=== PATIENT | male | born 1950 | race African-American/Black ===

== ENCOUNTER 2017-04-25 13:02 | Emergency (ER) | payer MEDICARE, BC ==
--- NOTE | 2017-04-25 13:47 | ER Document Report ---
ED Medical Screen (RME) - General Chief Complaint: Dizziness Stated Complaint: LEG PAIN Time Seen by Provider: 04/25/17 13:46 Mode of Arrival: Wheelchair Information source: Patient, Relative Notes: This is a 67-year-old man with a history of PTSD, bipolar affective disorder, chronic back pain, hypertension and diabetes. Patient presents to the emergency room because of recent unsteady gait, generalized weakness, falls 3. Patient denies any focal motor weakness. The symptoms have been greater than 24 hours. There is some reports of alcohol use. He does smoke 2 packs a day. Primary CARE physician: Jr Jose Psychiatrist Dr. Richards TRAVEL OUTSIDE OF THE [place] IN LAST 30 DAYS: No - Related Data Allergies/Adverse Reactions: No Known Allergies Allergy (Verified 04/25/17 13:08) Past Medical History - Past Medical History Cardiac Medical History: Reports: Hx Hypertension Pulmonary Medical History: Denies: Hx Tuberculosis Endocrine Medical History: Reports: Hx Diabetes Mellitus Type 2 Renal/ Medical History: Denies: Hx Peritoneal Dialysis Psychiatric Medical History: Reports: Hx Bipolar Disorder, Hx Depression, Hx Post Traumatic Stress Disorder Denies: Hx Schizophrenia Past Surgical History: Reports: Hx Genitourinary Surgery - Bladder surgery. Denies: Hx Pacemaker - Immunizations Hx Diphtheria, Pertussis, Tetanus Vaccination: No Physical Exam - Vital signs Vitals: Temp Pulse Resp BP Pulse Ox 98.6 F 101 H 20 134/67 H 100 04/25/17 13:07 04/25/17 13:07 04/25/17 13:07 04/25/17 13:07 04/25/17 13:07 Course - Vital Signs Vital signs: Temp Pulse Resp BP Pulse Ox 98.6 F 101 H 20 134/67 H 100 04/25/17 13:07 04/25/17 13:07 04/25/17 13:07 04/25/17 13:07 04/25/17 13:07
[2017-04-25 14:44] LABS: ABSOLUTE EOSINOPHILS # (AUTO) 0.1 10^3/uL (0.0-0.6); ABSOLUTE LYMPHOCYTES (AUTO) 1.9 10^3/uL (0.5-4.7); ABSOLUTE MONOCYTES (AUTO) 0.8 10^3/uL (0.1-1.4); ABSOLUTE NEUT (AUTO) 6.4 10^3/uL (1.7-8.2); BASOPHILS % (AUTO) 0.4 % (0-2); HEMATOCRIT 37.8 % (37.9-51.0); HEMOGLOBIN 12.7 g/dL (13.5-17.0); HGB HCT DIFFERENCE 0.3; LYMPHOCYTES % (AUTO) 20.8 % (13-45); MEAN CORPUSCULAR HEMOGLOBIN 31.1 pg (27.0-33.4); MEAN CORPUSCULAR HGB CONC 33.6 g/dL (32.0-36.0); MEAN CORPUSCULAR VOLUME 92 fl (80-97); MONOCYTES % (AUTO) 8.7 % (3-13); RED CELL DISTRIBUTION WIDTH 15.5 % (11.5-14.0); SEGMENTED NEUTROPHILS % (AUTO) 69.1 % (42-78); WHITE BLOOD COUNT 9.3 10^3/uL (4.0-10.5)
[2017-04-25 14:48] LABS: APPEARANCE,URINE CLEAR; BILIRUBIN,URINE NEGATIVE (NEGATIVE); GLUCOSE, URINE NEGATIVE (NEGATIVE); KETONES,URINE NEGATIVE (NEGATIVE); LEUKOCYTE ESTERASE,URINE NEGATIVE (NEGATIVE); NITRITE,URINE NEGATIVE (NEGATIVE); PROTEIN,URINE NEGATIVE (NEGATIVE); URINE SPECIFIC GRAVITY 1.004; UROBILINOGEN,URINE NEGATIVE mg/dL (<2.0)
--- NOTE | 2017-04-25 14:53 | ER Document Report ---
ED Dizziness/Weakness - General Chief Complaint: Dizziness Stated Complaint: LEG PAIN Time Seen by Provider: 04/25/17 13:46 Mode of Arrival: Wheelchair Notes: The patient is a 67-year-old male, past medical history PTSD, depression, presents with 24 hours of ataxia and feeling off balance. His family also said that he is having intermittent slurred speech throughout the day. Patient had a fall last night and hit the back of his head and right fernández. He denies headache, blood thinner use, fernández pain, numbness, tingling, back pain, chest pain, shortness of breath, blurry vision, focal weakness, numbness, tingling or fevers. TRAVEL OUTSIDE OF THE [place] IN LAST 30 DAYS: No - Related Data Allergies/Adverse Reactions: No Known Allergies Allergy (Verified 04/25/17 13:08) Past Medical History - General Information source: Patient, Relative - Social History Smoking Status: Current Every Day Smoker Chew tobacco use (# tins/day): No Frequency of alcohol use: None Drug Abuse: None Family History: Reviewed & Not Pertinent - Past Medical History Cardiac Medical History: Reports: Hx Hypertension Pulmonary Medical History: Denies: Hx Tuberculosis Endocrine Medical History: Reports: Hx Diabetes Mellitus Type 2 Renal/ Medical History: Denies: Hx Peritoneal Dialysis Psychiatric Medical History: Reports: Hx Bipolar Disorder, Hx Depression, Hx Post Traumatic Stress Disorder Denies: Hx Schizophrenia Past Surgical History: Reports: Hx Genitourinary Surgery - Bladder surgery. Denies: Hx Pacemaker - Immunizations Hx Diphtheria, Pertussis, Tetanus Vaccination: No Review of Systems - Review of Systems Notes: REVIEW OF SYSTEMS: CONSTITUTIONAL: -fevers, -chills EENT: -eye pain, -difficulty swallowing, -nasal congestion CARDIOVASCULAR:-chest pain, -syncope. RESPIRATORY: -cough, -SOB GASTROINTESTINAL: -abdominal pain, - nausea, -vomiting, -diarrhea GENITOURINARY: -dysuria, -hematuria MUSCULOSKELETAL: -back pain, -neck pain SKIN: -rash or skin lesions. HEMATOLOGIC: -easy bruising or bleeding. LYMPHATIC: -swollen, enlarged glands. NEUROLOGICAL: -altered mental status or loss of consciousness, -headache, + slurred speech, +ataxia PSYCHIATRIC: -anxiety, -depression. ALL OTHER SYSTEMS REVIEWED AND NEGATIVE. Physical Exam - Vital signs Vitals: Temp Pulse Resp BP Pulse Ox 98.6 F 101 H 20 134/67 H 100 08/04/17 13:07 04/25/17 13:07 04/25/17 13:07 04/25/17 13:07 04/25/17 13:07 - Notes Notes: PHYSICAL EXAMINATION: GENERAL: Well-appearing, well-nourished and in no acute distress. HEAD: Atraumatic, normocephalic. EYES: Pupils equal round and reactive to light, extraocular movements intact, sclera anicteric, conjunctiva are normal. ENT: nares patent, oropharynx clear without exudates. Moist mucous membranes. NECK: Normal range of motion, supple without lymphadenopathy LUNGS: Breath sounds clear to auscultation bilaterally and equal. No wheezes rales or rhonchi. HEART: Regular rate and rhythm without murmurs ABDOMEN: Soft, nontender, normoactive bowel sounds. No guarding, no rebound. No masses appreciated. EXTREMITIES: Normal range of motion, no pitting or edema. No cyanosis. Superficial abrasion over right anterior fernández. NEUROLOGICAL: Cranial nerves grossly intact. Normal speech. Normal sensory and motor exams. Past-pointing present in B/L arms. Normal rapid alternating hand movements. PSYCH: Normal mood, normal affect. SKIN: Warm, Dry, normal turgor, no rashes or lesions noted. Course - Re-evaluation Re-evalutation: Pt is having intermittent ataxia and slurred speech over the past [address] does not show a bleed. He is not a TPA candidate due to 24 hours of symptoms and waxing and waning of symptoms. NIHSS score 0. 04/25/17 19:11 CT Head and MRI Head does not show any evidence of a CVA. Patient is ambulating without difficulty in the ER with a steady gait and said that he sometimes uses a cane at home. Offered patient admission due to possible TIA, but patient and family would like to have outpatient workup with his primary care physician and neurologist. Instructed patient to take a baby aspirin at this time. Given strict return precautions and he understands. - Vital Signs Vital signs: Temp Pulse Resp BP Pulse Ox 98.6 F 68 25 H 177/80 H 100 04/25/17 13:07 04/25/17 17:31 04/25/17 18:38 04/25/17 18:38 04/25/17 18:38 - Laboratory Result Diagrams: 04/25/17 14:10 04/25/17 14:10 Laboratory results interpreted by me: 04/25/17 04/25/17 14:10 14:10 RBC 4.10 L Hgb 12.7 L Hct 37.8 L RDW 15.5 H ALT 19 L - Diagnostic Test Radiology reviewed: Image reviewed, Reports reviewed Radiology results interpreted by me: Head CT: NAD CXR: NAD CT C-spine: spondylysis, no acute change MRI: Chronic changes, but no acute changes. No evidence of stroke. - EKG Interpretation by Me EKG shows normal: Sinus rhythm, Joice, Intervals, QRS Complexes, ST-T Waves Rate: Normal Discharge - Discharge Clinical Impression: Gait disturbance Condition: Stable Disposition: HOME, SELF-CARE Additional Instructions: Your CAT scan and MRI do not show any evidence of a stroke. Take a baby aspirin every day. You must use your cane to help when you walk and follow-up with Dr. Jose and the Neurologist. Transient Ischemic Attack You have been diagnosed as having a transient ischemic attack (TIA). This is caused when an artery to the brain has been temporarily blocked. It can result in visual changes, difficulty with speech, and weakness or numbness -- usually limited to one side of the body. TIA symptoms usually resolve within an hour, but a TIA is serious, as it may be a warning sign of an impending stroke. To prevent further episodes, you may be placed on medication to reduce the possibility that your platelets will aggregate and form blood clots in the arteries that supply the brain. Usually, this includes aspirin and sometimes other platelet inhibitors. Further evaluation is often necessary to make an exact diagnosis as to where these blood clots are originating, and if anything else needs to be done to correct the problem. Call the physician or go to the emergency room if episodes occur with increasing frequency. If symptoms occur that don't go away within a few minutes , call 911. Referrals: GRACE FRANCO MD [Primary Care Provider] - Follow up as needed MATHEW ABREU MD [EMERITUS] - Follow up as needed
--- NOTE | 2017-04-25 14:57 | RADIOLOGY REPORT (SQ) ---
EXAM DESCRIPTION: CHEST SINGLE VIEW COMPLETED DATE/TIME: 04/25/2017 2:47 pm REASON FOR STUDY: multiple falls COMPARISON: Two-view chest 04/07/2016 EXAM PARAMETERS: NUMBER OF VIEWS: One view. TECHNIQUE: Single frontal radiographic view of the chest acquired. RADIATION DOSE: NA LIMITATIONS: None. FINDINGS: LUNGS AND PLEURA: No opacities, masses or pneumothorax. No pleural effusion. MEDIASTINUM AND HILAR STRUCTURES: No masses. Contour normal. HEART AND VASCULAR STRUCTURES: Heart normal in size. Normal vasculature. BONES: Diffuse thoracic spondylotic change HARDWARE: None in the chest. OTHER: No other significant finding. IMPRESSION: NO ACUTE RADIOGRAPHIC FINDING IN THE CHEST. TECHNICAL DOCUMENTATION: JOB ID: [id number]
[2017-04-25 14:59] LABS: ALANINE AMINOTRANSFERASE 19 U/L (21-72); ALBUMIN 3.8 g/dL (3.5-5.0); ALKALINE PHOSPHATASE 117 U/L (38-126); ANION GAP 11 (5-19); ASPARTATE AMINO TRANSFERASE 19 U/L (17-59); BILIRUBIN,DIRECT 0.3 mg/dL (0.0-0.4); BILIRUBIN,TOTAL 0.6 mg/dL (0.2-1.3); BLOOD UREA NITROGEN 8 mg/dL (7-20); CALCIUM 9.4 mg/dL (8.4-10.2); CARBON DIOXIDE 25 mmol/L (22-30); CHLORIDE 105 mmol/L (98-107); CREATINE KINASE 91 U/L (55-170); GLUCOSE 97 mg/dL (75-110); MAGNESIUM 1.9 mg/dL (1.6-2.3); POTASSIUM 4.7 mmol/L (3.6-5.0); SODIUM 140.6 mmol/L (137-145); TOTAL PROTEIN 6.9 g/dL (6.3-8.2)
[2017-04-25 15:02] LABS: ALCOHOL < 10 mg/dL (NONE DETECTED)
--- NOTE | 2017-04-25 15:08 | RADIOLOGY REPORT (SQ) ---
EXAM DESCRIPTION: CT HEAD WITHOUT COMPLETED DATE/TIME: 04/25/2017 2:39 pm REASON FOR STUDY: multiple falls COMPARISON: None. TECHNIQUE: Axial images acquired through the brain without intravenous contrast. Images reviewed wi th bone, brain and subdural windows. Images stored on PACS. All CT scanners at this facility use dose modulation, iterative reconstruction, and/or weight based d osing when appropriate to reduce radiation dose to as low as reasonably achievable (ALARA). [facility]: Dose Right [facility]: CareDose [facility]: Dose Right [facility]: Teradose 4D [facility]: Smart Time [employer] RADIATION DOSE: Up-to-date CT equipment and radiation dose reduction techniques were employed. CTDIv ol: 64.6 mGy. DLP: 1163 mGy-cm. mGy. LIMITATIONS: None. FINDINGS: VENTRICLES: Normal size and contour. CEREBRUM: No masses. No hemorrhage. No midline shift. Normal andrade/white matter differentiation. N o evidence for acute infarction. CEREBELLUM: No masses. No hemorrhage. No alteration of density. No evidence for acute infarction. EXTRAAXIAL SPACES: No fluid collections. No masses. ORBITS AND GLOBE: No intra- or extraconal masses. Normal contour of globe without masses. CALVARIUM: No fracture. PARANASAL SINUSES: No fluid or mucosal thickening. SOFT TISSUES: No mass or hematoma. OTHER: No other significant finding. IMPRESSION: NORMAL BRAIN CT WITHOUT CONTRAST. TECHNICAL DOCUMENTATION: JOB ID: [id number] Quality ID # [id number]: Final reports with documentation of one or more dose reduction techniques (e.g., Au tomated exposure control, adjustment of the mA and/or kV according to patient size, use of iterative reconstruction technique) 2010 [employer]- All Rights Reserved
[2017-04-25 15:10] LABS: CREATINE KINASE MB 0.86 ng/mL (<4.55)
[2017-04-25 15:12] LABS: TROPONIN I < 0.012 ng/mL
--- NOTE | 2017-04-25 15:14 | RADIOLOGY REPORT (SQ) ---
EXAM DESCRIPTION: CT CERVICAL SPINE WITHOUT COMPLETED DATE/TIME: 04/25/2017 2:39 pm REASON FOR STUDY: multiple falls COMPARISON: None. TECHNIQUE: Axial images acquired through the cervical spine without intravenous contrast. Images re viewed with lung, soft tissue and bone windows. Reconstructed coronal and sagittal MPR images review ed. Images stored on PACS. All CT scanners at this facility use dose modulation, iterative reconstruction, and/or weight based d osing when appropriate to reduce radiation dose to as low as reasonably achievable (ALARA). [facility]: Dose Right [facility]: CareDose [facility]: Dose Right [facility]: Teradose 4D [facility]: [employer] RADIATION DOSE: Up-to-date CT equipment and radiation dose reduction techniques were employed. CTDIv ol: 21.8 mGy. DLP: 498 mGy-cm. mGy. LIMITATIONS: None. FINDINGS: ALIGNMENT: Anatomic. MINERALIZATION: Normal. VERTEBRAL BODIES: No fractures or dislocation. Bridging osteophytes are seen anteriorly from C2 to T 2. Small uncovertebral osteophytes are present at several levels. DISCS: There is mild narrowing of the C2-3 disc space and the C5-6 and C6-7 disc spaces. FACETS, LATERAL MASSES, POSTERIOR ELEMENTS: Hypertrophic facet changes seen on the left most prominen tly at C4-5. HARDWARE: None in the spine. VISUALIZED RIBS: No fractures. LUNG APICES AND SOFT TISSUES: No significant or acute findings. OTHER: There are calcifications in the posterior longitudinal ligament most prominently at C6-7. The re is no significant central canal or foraminal stenosis, however. IMPRESSION: Degenerative disc disease, extensive spondylosis, and facet arthropathy as described. N o acute abnormality. TECHNICAL DOCUMENTATION: JOB ID: [id number] Quality ID # [id number]: Final reports with documentation of one or more dose reduction techniques (e.g., Au tomated exposure control, adjustment of the mA and/or kV according to patient size, use of iterative reconstruction technique) 2010 [employer]- All Rights Reserved
--- NOTE | 2017-04-25 18:29 | RADIOLOGY REPORT (SQ) ---
EXAM DESCRIPTION: MRI HEAD WITHOUT COMPLETED DATE/TIME: 04/25/2017 6:01 pm REASON FOR STUDY: ataxia, slurred speech COMPARISON: CT brain 04/25/2017 TECHNIQUE: Multiplanar imaging includes non-contrasted T1, T2, FLAIR, and diffusion with ADC map seq uences. Images stored on PACS. LIMITATIONS: None. FINDINGS: ANATOMY: No anomalies. Normal vascular flow voids. Pituitary fossa normal. CSF SPACES: Normal in size and contour. No hemorrhage. CEREBRUM: Sulci and gyri normal in size and contour. There are a couple of small areas of increased white matter signal on FLAIR and T2 imaging. No evidence of hemorrhage, mass, or extraaxial fluid co llection. POSTERIOR FOSSA: No signal alteration. No hemorrhage. No edema, masses or mass effect. Internal trav tory canals, cerebello-pontine angles, mastoids normal. DIFFUSION IMAGING: Negative for acute or sub-acute infarction. ORBITS: No masses. Globes normal. PARANASAL SINUSES: No fluid levels. Mucosa normal. OTHER: No other significant finding. IMPRESSION: There is evidence of mild chronic microvascular ischemic disease with no acute intracran ial pathology. EVIDENCE OF ACUTE STROKE: NO. TECHNICAL DOCUMENTATION: JOB ID: [id number] [employer]- All Rights Reserved
--- NOTE | 2017-04-25 19:05 | EKG REPORT ---
SEVERITY:- BORDERLINE ECG - SINUS RHYTHM PROBABLE LEFT ATRIAL ABNORMALITY : Confirmed by: Dakota Thacker MD 25-Apr-2017 19:04:49
[2017-04-25 19:21] VITALS: BP 182/86
== END 2017-04-25 19:21 | disposition home or self-care (01) ==
LOC: ER 13:02
DX: R26.0 Ataxic gait (principal); R47.81 Slurred speech; I10 Essential (primary) hypertension; M47.9 Spondylosis, unspecified; E11.9 Type 2 diabetes mellitus without complications; F17.200 Nicotine dependence, unspecified, uncomplicated; Z91.81 History of falling
CPT/HCPCS: 36415; 70450; 70551; 71010; 72125; 80053; 80307; 81001; 82550; 82553; 83735; 84484; 85025; 93005; 93010; 99285

== ENCOUNTER 2017-05-27 11:56 | Emergency (ER) | payer MEDICARE, BC ==
--- NOTE | 2017-05-27 12:43 | ER Document Report ---
ED Medical Screen (RME) - General Chief Complaint: Toe Injury Stated Complaint: LACERATION TO TOE Time Seen by Provider: 05/27/17 12:41 Notes: Patient states he jammed his left big toe this morning on some steps. Exam shows the patient to have a large open wound at the interphalangeal joint of the left big toe. TRAVEL OUTSIDE OF THE [place] IN LAST 30 DAYS: No - Related Data Allergies/Adverse Reactions: No Known Allergies Allergy (Verified 04/25/17 13:08) Past Medical History - Past Medical History Cardiac Medical History: Reports: Hx Hypertension Pulmonary Medical History: Denies: Hx Tuberculosis Endocrine Medical History: Reports: Hx Diabetes Mellitus Type 2 Renal/ Medical History: Denies: Hx Peritoneal Dialysis Psychiatric Medical History: Reports: Hx Bipolar Disorder, Hx Depression, Hx Post Traumatic Stress Disorder Denies: Hx Schizophrenia Past Surgical History: Reports: Hx Genitourinary Surgery - Bladder surgery. Denies: Hx Pacemaker - Immunizations Hx Diphtheria, Pertussis, Tetanus Vaccination: No
--- NOTE | 2017-05-27 13:19 | RADIOLOGY REPORT (SQ) ---
EXAM DESCRIPTION: FOOT LEFT COMPLETE COMPLETED DATE/TIME: 05/27/2017 1:00 pm REASON FOR STUDY: hit toe on steps COMPARISON: None. NUMBER OF VIEWS: Three views. TECHNIQUE: AP, lateral and oblique radiographic images acquired of the left foot. LIMITATIONS: None. FINDINGS: MINERALIZATION: Normal. BONES: Acute transverse fracture base left great toe distal phalanx deep to the fingernail bed. This is nondisplaced nonangulated with adjacent soft tissue swelling. JOINTS: Intact SOFT TISSUES: Great toe soft tissue swelling. No foreign body. OTHER: No other significant finding. IMPRESSION: Acute transverse nondisplaced nonangulated fracture, left great toe distal phalanx. Thi s is along the distal phalanx metaphysis, deep to the fingernail bed. TECHNICAL DOCUMENTATION: JOB ID: [id number] [employer]- All Rights Reserved
[2017-05-27] MEDS ORDERED: LIDOCAINE 1% INJ-PF (10 MG/ML) 30 ML SDV INJ ONE (13:50)
--- NOTE | 2017-05-27 13:55 | ER Document Report ---
ED General - General Chief Complaint: Toe Injury Stated Complaint: LACERATION TO TOE Time Seen by Provider: 05/27/17 12:41 Mode of Arrival: Ambulatory Information source: Patient Notes: 67-year-old male presents after stubbing his toe just prior to arrival. Patient notes history of diabetes neuropathy does not feel the pain TRAVEL OUTSIDE OF THE [place] IN LAST 30 DAYS: No - HPI Onset: Just prior to arrival Onset/Duration: Sudden Quality of pain: No pain Severity: Mild Pain Level: Denies Associated symptoms: None Exacerbated by: Denies Relieved by: Denies Similar symptoms previously: No Recently seen / treated by doctor: No - Related Data Allergies/Adverse Reactions: No Known Allergies Allergy (Verified 05/27/17 13:40) Past Medical History - Social History Smoking Status: Never Smoker Cigarette use (# per day): No Chew tobacco use (# tins/day): No Smoking Education Provided: No Frequency of alcohol use: None Drug Abuse: None Family History: Reviewed & Not Pertinent Patient has suicidal ideation: No Patient has homicidal ideation: No - Past Medical History Cardiac Medical History: Reports: Hx Hypertension Pulmonary Medical History: Denies: Hx Tuberculosis Endocrine Medical History: Reports: Hx Diabetes Mellitus Type 2 Renal/ Medical History: Denies: Hx Peritoneal Dialysis Psychiatric Medical History: Reports: Hx Bipolar Disorder, Hx Depression, Hx Post Traumatic Stress Disorder Denies: Hx Schizophrenia Past Surgical History: Reports: Hx Genitourinary Surgery - Bladder surgery. Denies: Hx Pacemaker - Immunizations Hx Diphtheria, Pertussis, Tetanus Vaccination: No Review of Systems - Review of Systems Notes: REVIEW OF SYSTEMS: CONSTITUTIONAL : Denies fever, chills, or sweats. Denies recent illness. EENT: Denies eye, ear, throat, or mouth pain or symptoms. Denies nasal or sinus congestion or discharge. Denies throat, tongue, or mouth swelling or difficulty swallowing. CARDIOVASCULAR: Denies chest pain. Denies palpitations or racing or irregular heart beat. Denies ankle edema. RESPIRATORY: Denies cough, cold, or chest congestion. Denies shortness of breath, difficulty breathing, or wheezing. GASTROINTESTINAL: Denies abdominal pain or distention. Denies nausea, vomiting , or diarrhea. Denies blood in vomitus, stools, or per rectum. Denies black, tarry stools. Denies constipation. GENITOURINARY: Denies difficulty urinating, painful urination, burning, frequency, blood in urine, or discharge. MUSCULOSKELETAL: Denies back or neck pain or stiffness. Denies joint pain or swelling. SKIN: Laceration to HEMATOLOGIC : Denies easy bruising or bleeding. LYMPHATIC: Denies swollen, enlarged glands. NEUROLOGICAL: Denies confusion or altered mental status. Denies passing out or loss of consciousness. Denies dizziness or lightheadedness. Denies headache. Denies weakness or paralysis or loss of use of either side. Denies problems with gait or speech. Denies sensory loss, numbness, or tingling. Denies seizures. PSYCHIATRIC: Denies anxiety or stress. Denies depression, suicidal ideation, or homicidal ideation. ALL OTHER SYSTEMS REVIEWED AND NEGATIVE. Dictation was performed using [employer] voice recognition software PHYSICAL EXAMINATION: GENERAL: Well-appearing, well-nourished and in no acute distress. HEAD: Atraumatic, normocephalic. EYES: Pupils equal round and reactive to light, extraocular movements intact, sclera anicteric, conjunctiva are normal. ENT: Nares patent, oropharynx clear without exudates. Moist mucous membranes. NECK: Normal range of motion, supple without lymphadenopathy LUNGS: Breath sounds clear to auscultation bilaterally and equal. No wheezes rales or rhonchi. HEART: Regular rate and rhythm without murmurs ABDOMEN: Soft, nontender, nondistended abdomen. No guarding, no rebound. No masses appreciated. Musculoskeletal: Deformity of digit NEUROLOGICAL: Cranial nerves grossly intact. Normal speech, normal gait. Normal sensory, motor exams PSYCH: Normal mood, normal affect. SKIN: Laceration noted of the toe measuring 8 cm Physical Exam - Vital signs Vitals: Temp Pulse Resp BP Pulse Ox 98.6 F 87 16 156/80 H 99 05/27/17 12:08 05/27/17 12:08 05/27/17 12:08 05/27/17 12:08 05/27/17 12:08 Course - Re-evaluation Re-evalutation: 05/27/17 18:48 Patient has obvious fracture of the distal phalanx of the great toe. The toe was cleansed extensively, I had him wash it I washed it and then the patient was placed in Betadine for approximately 25 minutes, I have very high concern for infection since he is a diabetic and there is a fracture, I do not believe the fracture connected with the left open laceration but patient will be started on antibiotics nonetheless and given very strict return precautions. Patient will be sent for orthopedics for evaluation. I did explain that he may lose the nail as a fracture may include the nailbed as well. Patient states he understands and will do anything he can to make sure it does not get infected. Family members agree with this plan. After performing a Medical Screening Examination, I estimate there is LOW risk for INTRACRANIAL HEMORRHAGE, UNSTABLE SPINE FRACTURE, CENTRAL CORD SYNDROME, CAUDA EQUINA, THORACIC AORTIC DISSECTION, PNEUMOTHORAX, PERFORATED BOWEL, RUPTURED ABDOMINAL AORTIC ANEURYSM, ACUTE TENDON RUPTURE, COMPARTMENT SYNDROME, or OPEN FRACTURE, thus I consider the discharge disposition reasonable. Also, there is no evidence or peritonitis, sepsis, or toxicity. I have reevaluated this patient multiple times and no significant life threatening changes are noted. The patient and I have discussed the diagnosis and risks, and we agree with discharging home to follow-up with their primary doctor with the understanding that symptoms and presentations can change. We also discussed returning to the Emergency Department immediately if new or worsening symptoms occur. We have discussed the symptoms which are most concerning (e.g., bloody stool, fever, changing or worsening pain, vomiting) that necessitate immediate return. - Vital Signs Vital signs: Temp Pulse Resp BP Pulse Ox 97.8 F 62 18 175/84 H 98 05/27/17 15:19 05/27/17 15:19 05/27/17 15:19 05/27/17 15:19 05/27/17 15:19 - Diagnostic Test Radiology reviewed: Image reviewed, Reports reviewed - Fracture distal phalanx Procedures - Laceration/Wound Repair Left Great toe Time completed: 15:03 Wound length (cm): 8 Wound's Depth, Shape: Into muscle, Irregular, Flap Laceration pre-procedure: Sterile PPE donned, Betadine prep applied, Sterile drapes applied, Other Anesthetic type: 1% Lidocaine Volume Anesthetic (mLs): 10 Wound explored: Clean, No foreign body removed Irrigated w/ Saline (mLs): 5,000 - Patient's foot was placed into Betadine for approximately 25 minutes Wound Debrided: Extensive Wound Repaired With: Sutures Suture Size/Type: 4:0, Ethilon Number of Sutures: 8 Post-procedure wound care: Sterile dressing applied, Splint applied Post-procedure NV exam normal: Yes Complications: No - Additional Procedures digital nerve block toe Time performed: 13:55 - using 10cc of lido without epi with compelte enrve block of toe Discharge - Discharge Clinical Impression: Laceration, Diabetic foot Toe fracture, left Qualifiers: Encounter type: initial encounter Toe: great toe Fracture type: closed Phalanx : distal Fracture alignment: nondisplaced Qualified Code(s): S92.425A - Nondisplaced fracture of distal phalanx of left great toe, initial encounter for closed fracture Condition: Serious Disposition: HOME, SELF-CARE Instructions: Laceration Care ([facility]), Prophylactic Antibiotic ([facility]) Prescriptions: Cephalexin Monohydrate [Keflex 500 mg Capsule] 500 mg PO QID #40 capsule Sulfamethoxazole/Trimethoprim [Bactrim Ds Tablet] 2 each PO BID #40 tablet Referrals: JAMES POSADA DO [ACTIVE STAFF] - Follow up tomorrow
[2017-05-27] MEDS ORDERED: DIPH/PERTUSS(ACELL)/TETANUS VAC/PF 0.5 ML SYR (>=10YO) IM ONE (15:07)
[2017-05-27] MEDS ORDERED: SULFAMETHOXAZOLE/TRIMETHOPRIM 800-160 MG TABLET PO ONE (15:07)
[2017-05-27] MEDS ORDERED: CEPHALEXIN 500 MG CAPSULE PO ONE (15:07)
[2017-05-27 15:26] VITALS: BP 175/84
== END 2017-05-27 15:32 | disposition home or self-care (01) ==
LOC: ER 11:56
PROC: 0HQNXZZ Repair Left Foot Skin, External Approach (ICD-10-PCS; principal; 2017-05-27)
DX: S91.112A Laceration without foreign body of left great toe without damage to nail, initial encounter (principal); S92.425A Nondisplaced fracture of distal phalanx of left great toe, initial encounter for closed fracture; W22.09XA Striking against other stationary object, initial encounter; E11.40 Type 2 diabetes mellitus with diabetic neuropathy, unspecified; I10 Essential (primary) hypertension; Z23 Encounter for immunization
CPT/HCPCS: 12044; 99283; 73630; 90715; A9270 ×2; J3490

== ENCOUNTER → 2018-11-30 | Outpatient (CLI) | payer MEDICARE, BC ==
--- NOTE | 2018-11-30 14:52 | RADIOLOGY REPORT (SQ) ---
EXAM DESCRIPTION: CT CHEST WITH COMPLETED DATE/TIME: 11/30/2018 1:59 pm REASON FOR STUDY: HEMOPTYSIS, LUNG MASS ON CXR (R91.8) R91.8 OTHER NONSPECIFIC ABNORMAL FINDING OF LUNG FIELD COMPARISON: None. TECHNIQUE: CT scan of the chest performed using helical scanning technique with dynamic intravenous contrast injection. Images reviewed with lung, soft tissue and bone windows. Reconstructed coronal and sagittal MPR and MIP images reviewed. All images stored on PACS. All CT scanners at this facility use dose modulation, iterative reconstruction, and/or weight based d osing when appropriate to reduce radiation dose to as low as reasonably achievable (ALARA). [facility]: Dose Right [facility]: CareDose [facility]: Dose Right [facility]: Teradose 4D [facility]: Chomp CONTRAST TYPE AND DOSE: contrast/concentration: Isovue 350.00 mg/ml; Total Contrast Delivered: 80.0 ml; Total Saline Delivered: 55.0 ml RENAL FUNCTION: Creatinine 1.0. RADIATION DOSE: CT Rad equipment meets quality standard of care and radiation dose reduction techniq ues were employed. CTDIvol: 10.0 mGy. DLP: 384 mGy-cm. . LIMITATIONS: None. FINDINGS: LUNGS AND PLEURA: Lobulated mass in the anterior left upper lobe measuring 4.2 x 5.6 cm. Indistinct spiculated margins. The lungs are otherwise clear. No other pulmonary nodules or masses. No pleural effusion or pleural thickening. HILAR AND MEDIASTINAL STRUCTURES: No identified masses or abnormal nodes. HEART AND VASCULAR STRUCTURES: No aneurysm or dissection. No central pulmonary emboli. No pericardi al effusion. HARDWARE: None in the chest. UPPER ABDOMEN: Low-attenuation nodules in both adrenal glands, on the right measuring 1 x 1.5 cm and on the left measuring 1.5 x 2 cm. Low-attenuation cortical lesion in the left kidney measuring 2 cm. Low-attenuation lesion in the cortex of the right kidney, not completely visualized, measuring appr oximately 3 cm. Limited exam. THYROID AND OTHER SOFT TISSUES: No masses. No adenopathy. BONES: No significant finding. OTHER: No other significant finding. IMPRESSION: 1. LARGE LOBULATED SPICULATED MASS IN THE LEFT UPPER LOBE SUSPICIOUS FOR MALIGNANCY. NO OTHER PULMON JAY LESIONS. NO SIGNIFICANT ADENOPATHY VISUALIZED. 2. BILATERAL ADRENAL NODULES. THESE COULD BE INCIDENTAL ADENOMAS ALTHOUGH METASTATIC LESIONS CANNOT BE EXCLUDED. 3. BILATERAL RENAL CYSTS, NOT COMPLETELY IMAGED. TECHNICAL DOCUMENTATION: JOB ID: [id number] Quality ID # [id number]: Final reports with documentation of one or more dose reduction techniques (e.g., Au tomated exposure control, adjustment of the mA and/or kV according to patient size, use of iterative reconstruction technique) 2010 [employer]- All Rights Reserved Reading location - IP/workstation name: [email or web address]
== END ==
LOC: RAD 13:10
PROVIDERS: ATTEND Physician Assistant
DX: R91.1 Solitary pulmonary nodule (principal); R04.2 Hemoptysis; E27.8 Other specified disorders of adrenal gland
CPT/HCPCS: 71260; 82565

== ENCOUNTER 2019-05-12 16:51 | Emergency (ER) | payer MEDICARE, BC ==
--- NOTE | 2019-05-12 17:36 | EKG REPORT ---
SEVERITY:- BORDERLINE ECG - SINUS TACHYCARDIA PROBABLE LEFT ATRIAL ABNORMALITY : Confirmed by: Michelle Don MD 12-May-2019 17:35:55
[2019-05-12 18:19] LABS: ABSOLUTE LYMPHOCYTES (AUTO) 1.4 10^3/uL (0.5-4.7); ABSOLUTE MONOCYTES (AUTO) 1.1 10^3/uL (0.1-1.4); ABSOLUTE NEUT (AUTO) 7.3 10^3/uL (1.7-8.2); BASOPHILS % (AUTO) 0.3 % (0-2); EOSINOPHILS % (AUTO) 0.3 % (0-6); HEMATOCRIT 28.9 % (37.9-51.0); HEMOGLOBIN 9.7 g/dL (13.5-17.0); LYMPHOCYTES % (AUTO) 14.6 % (13-45); MEAN CORPUSCULAR HEMOGLOBIN 30.4 pg (27.0-33.4); MEAN CORPUSCULAR HGB CONC 33.7 g/dL (32.0-36.0); MEAN CORPUSCULAR VOLUME 91 fl (80-97); MONOCYTES % (AUTO) 10.8 % (3-13); PLATELET COUNT 367 10^3/uL (150-450); RED BLOOD COUNT 3.19 10^6/uL (4.35-5.55); RED CELL DISTRIBUTION WIDTH 15.7 % (11.5-14.0); TOTAL CELLS COUNTED % (AUTO) 100 %; WHITE BLOOD COUNT 9.9 10^3/uL (4.0-10.5)
--- NOTE | 2019-05-12 18:36 | ER Document Report ---
Entered by MENDOZA GODINEZ SCRIBE 05/12/19 1833 Acting as scribe for:VANESSA DELGADO MD ED General - General Chief Complaint: Probable Seizure Stated Complaint: POSSIBLE SEZIURE Time Seen by Provider: 05/12/19 18:06 Primary Care Provider: GRACE FRANCO MD [Primary Care Provider] - Follow up as needed Information source: Patient Notes: 69 year old male with lung cancer that presents to the emergency department today with complaints of "shaking episodes" for the last week. Patient reports having one episode a day for the last week until today where he has had x3 of these episodes. at bedside describes these episodes as "not convulsions, but whole body shaking". reports the patient appears to be "out of it" during these episodes but the patient reports being aware of everything that is going on throughout these episodes. Patient states today he was walking to the bathroom when he began to feel as if an episode was coming on, he called for his who came in to help him . states she was able to get him on the toilet prior to the shaking beginning. Patient is on Lamictal which he reports he takes for depression. Patient states he has had x3 chemotherapy treatments and is due to start radiation therapy in x2 days. Patient has chronic back pain which he states has become worse over the last x3 weeks. Patient states he had a PET scan x2-3 months ago which showed only this lung malignancy. TRAVEL OUTSIDE OF THE [place] IN LAST 30 DAYS: No - Related Data Allergies/Adverse Reactions: No Known Allergies Allergy (Verified 05/12/19 16:52) Past Medical History - General Information source: Patient - Social History Smoking Status: Current Every Day Smoker Cigarette use (# per day): Yes Frequency of alcohol use: None Drug Abuse: None Lives with: Family Family History: Reviewed & Not Pertinent - Past Medical History Cardiac Medical History: Reports: Hx Hypertension Endocrine Medical History: Reports: Hx Diabetes Mellitus Type 2 - w/ neuropathy Renal/ Medical History: Reports: Hx Benign Prostatic Hyperplasia Malignancy Medical History: Reports Hx Lung Cancer, Reports Other - Bladder cancer Musculoskeletal Medical History: Reports Hx Arthritis - back Psychiatric Medical History: Reports: Hx Bipolar Disorder, Hx Depression, Hx Post Traumatic Stress Disorder Past Surgical History: Reports: Hx Genitourinary Surgery - Bladder tumor removed - Immunizations Hx Diphtheria, Pertussis, Tetanus Vaccination: No Review of Systems - Review of Systems Constitutional: See HPI, Other - "shaking" EENT: No symptoms reported Cardiovascular: No symptoms reported Respiratory: No symptoms reported Gastrointestinal: No symptoms reported Genitourinary: No symptoms reported Male Genitourinary: No symptoms reported Musculoskeletal: See HPI, Back pain Skin: No symptoms reported Hematologic/Lymphatic: No symptoms reported Neurological/Psychological: No symptoms reported -: Yes All other systems reviewed and negative Physical Exam - Vital signs Vitals: Temp Pulse Resp BP Pulse Ox 98.6 F 108 H 18 117/65 97 05/12/19 17:09 05/12/19 17:09 05/12/19 17:09 05/12/19 17:09 05/12/19 17:09 - Notes Notes: Physical Exam: General: Alert. HEENT: Normocephalic. Atraumatic. PERRL. Extraocular movements intact. Oropharynx clear. Neck: Supple. Non-tender. Respiratory: No respiratory distress. Clear and equal breath sounds bilaterally. Cardiovascular: 1/6 systolic murmur that radiates into carotid. Regular rate and rhythm. Abdominal: Normal Inspection. Non-tender. No distension. Normal Bowel Sounds. Back: No midline bony tenderness with palpation. Paraspinal lumbar musculature tenderness with palpation. Extremities: Moves all four extremities. Upper extremities: Normal inspection. Normal ROM. Lower extremities: Normal inspection. No edema. Normal ROM. Neurological: Normal cognition. AAOx4. Normal speech. Psychological: Normal affect. Normal Mood. Skin: Warm. Dry. Normal color. Course - Vital Signs Vital signs: Temp Pulse Resp BP Pulse Ox 98.6 F 108 H 24 H 145/89 H 98 05/12/19 17:09 05/12/19 17:09 05/12/19 18:01 05/12/19 18:00 05/12/19 18:01 - Laboratory Result Diagrams: 05/12/19 17:45 05/12/19 17:45 Laboratory results interpreted by me: 05/12/19 05/12/19 05/12/19 17:45 17:45 20:33 RBC 3.19 L Hgb 9.7 L Hct 28.9 L RDW 15.7 H Sodium 134.8 L Chloride 96 L BUN 26 H Glucose 116 H Alkaline Phosphatase 292 H Urine Blood SMALL H - Diagnostic Test Radiology reviewed: Image reviewed, Reports reviewed - Chest x-ray shows known left upper lobe lung mass without acute changes. CT scan of the head shows microvascular ischemic changes. MRI combo shows mild to moderate cortical atrophy and periventricular white matter changes. No acute intracranial lesions. No suspicious abnormal enhancement. Nasal turbinate swelling. Mild diffuse inflammatory changes in the paranasal sinuses. - EKG Interpretation by Me EKG shows normal: Sinus rhythm, [place], Intervals, QRS Complexes, ST-T Waves Rate: Tachycardia - 106 P Waves: LAE Discharge - Discharge Clinical Impression: Witnessed seizure-like activity Lung cancer Qualifiers: Laterality: left Lung location: upper lobe of lung Qualified Code(s): C34.12 - Malignant neoplasm of upper lobe, left bronchus or lung Condition: Stable Disposition: HOME, SELF-CARE Additional Instructions: Seizure-like Activity: You MAY have had a seizure. Seizure disorders (epilepsy) of one sort or another affect about one out of 50 people. The seizure occurs because of abnormal electrical activity in the brain. Seizures may be due to drugs and alcohol, strokes, brain injury, or infection. In the most common form of epilepsy, no cause can be found. You will require further evaluation to determine the cause of your seizure, and to determine whether anti-seizure medication is required. This follow-up testing is important, so please call us if you encounter problems with scheduling of tests or appointments. YOU SHOULD NOT DRIVE until released to do so by your physician. The law requires that seizures be reported to the lunch truck driver's license bureau--a seizure while driving could be catastrophic. Call the doctor if seizures recur, or if you develop new symptoms such as fever, severe headache, stiff neck, confusion or increasing sleepiness, weakness or numbness, or visual problems. The MRI of your head did not show any disease that might have caused your shaking episodes. You should follow-up with your primary care provider or your neurologist tomorrow to discuss your symptoms and see if the would like to do any further evaluation. RETURN TO THE EMERGENCY ROOM IF ANY NEW OR WORSENING SYMPTOMS. Referrals: GRACE FRANCO MD [Primary Care Provider] - Follow up as needed Lauraibe Attestation: 05/12/19 18:37 I personally performed the services described in the documentation, reviewed and edited the documentation which was dictated to the scribe in my presence, and it accurately records my words and actions. I personally performed the services described in the documentation, reviewed and edited the documentation which was dictated to the scribe in my presence, and it accurately records my words and actions.
[2019-05-12 18:41] LABS: ALBUMIN 3.9 g/dL (3.5-5.0); ALKALINE PHOSPHATASE 292 U/L (38-126); ANION GAP 13 (5-19); ASPARTATE AMINO TRANSFERASE 20 U/L (17-59); BILIRUBIN,DIRECT 0.3 mg/dL (0.0-0.4); BILIRUBIN,TOTAL 0.4 mg/dL (0.2-1.3); BLOOD UREA NITROGEN 26 mg/dL (7-20); CALCIUM 9.9 mg/dL (8.4-10.2); CARBON DIOXIDE 26 mmol/L (22-30); CHLORIDE 96 mmol/L (98-107); GLUCOSE 116 mg/dL (75-110); POTASSIUM 4.1 mmol/L (3.6-5.0)
--- NOTE | 2019-05-12 18:52 | RADIOLOGY REPORT (SQ) ---
EXAM DESCRIPTION: CHEST SINGLE VIEW COMPLETED DATE/TIME: 05/12/2019 6:42 pm REASON FOR STUDY: Lung cancer, seizure-like activity COMPARISON: CT chest 11/30/2018 EXAM PARAMETERS: NUMBER OF VIEWS: One view. TECHNIQUE: Single frontal radiographic view of the chest acquired. RADIATION DOSE: NA LIMITATIONS: None. FINDINGS: LUNGS AND PLEURA: Known left upper lobe pulmonary mass. No new opacities, or pneumothorax . No pleural effusion. MEDIASTINUM AND HILAR STRUCTURES: No masses. Contour normal. HEART AND VASCULAR STRUCTURES: Heart normal in size. Normal vasculature. BONES: No acute findings. HARDWARE: None in the chest. OTHER: No other significant finding. IMPRESSION: Known left upper lobe pulmonary mass. No acute pulmonary findings otherwise. TECHNICAL DOCUMENTATION: JOB ID: [id number] [employer]- All Rights Reserved Reading location - IP/workstation name: [email or web address]
--- NOTE | 2019-05-12 19:05 | RADIOLOGY REPORT (SQ) ---
EXAM DESCRIPTION: CT HEAD WITHOUT COMPLETED DATE/TIME: 05/12/2019 6:53 pm REASON FOR STUDY: H/O LUNG CANCER, SEIZURE LIKE ACTIVITY COMPARISON: CT head 04/25/2017 TECHNIQUE: Axial images acquired through the brain without intravenous contrast. Images reviewed wi th bone, brain and subdural windows. Additional sagittal and coronal reconstructions were generated. Images stored on PACS. All CT scanners at this facility use dose modulation, iterative reconstruction, and/or weight based d osing when appropriate to reduce radiation dose to as low as reasonably achievable (ALARA). [facility]: Dose Right [facility]: CareDose [facility]: Dose Right [facility]: Teradose 4D [facility]: Smart [employer] RADIATION DOSE: CT Rad equipment meets quality standard of care and radiation dose reduction techniq ues were employed. CTDIvol: 48.6 mGy. DLP: 1003 mGy-cm. mGy. LIMITATIONS: None. FINDINGS: VENTRICLES: Normal size and contour. CEREBRUM: No masses. No hemorrhage. No midline shift. No evidence for acute infarction. Few scatte red areas of low density in the white matter most likely chronic small vessel ischemic changes. CEREBELLUM: No masses. No hemorrhage. No alteration of density. No evidence for acute infarction. EXTRAAXIAL SPACES: No fluid collections. No masses. ORBITS AND GLOBE: No intra- or extraconal masses. Normal contour of globe without masses. CALVARIUM: No fracture. PARANASAL SINUSES: No fluid or mucosal thickening. SOFT TISSUES: No mass or hematoma. OTHER: No other significant finding. IMPRESSION: MILD CHRONIC MICROVASCULAR ISCHEMIA. NO ACUTE IMAGING FINDINGS IN THE BRAIN. PROVIDED H ISTORY OF LUNG CANCER, CONSIDER MRI IF THERE IS CONCERN FOR INTRACRANIAL METASTATIC DISEASE. EVIDENCE OF ACUTE STROKE: NO. COMMENT: Quality ID # [id number]: Final reports with documentation of one or more dose reduction techniques (e.g., Automated exposure control, adjustment of the mA and/or kV according to patient size, use of iterative reconstruction technique) TECHNICAL DOCUMENTATION: JOB ID: [id number]- All Rights Reserved Reading location - IP/workstation name: [email or web address]
[2019-05-12] MEDS ORDERED: OXYCODONE-ACETAMINOPHEN 5-325 MG TABLET PO ONE (20:34)
[2019-05-12 21:13] LABS: APPEARANCE,URINE CLEAR; BILIRUBIN,URINE NEGATIVE (NEGATIVE); COLOR,URINE YELLOW; GLUCOSE, URINE NEGATIVE (NEGATIVE); KETONES,URINE NEGATIVE (NEGATIVE); LEUKOCYTE ESTERASE,URINE NEGATIVE (NEGATIVE); NITRITE,URINE NEGATIVE (NEGATIVE); PROTEIN,URINE NEGATIVE (NEGATIVE); URINE SPECIFIC GRAVITY 1.009; UROBILINOGEN,URINE NEGATIVE mg/dL (<2.0)
--- NOTE | 2019-05-12 22:37 | RADIOLOGY REPORT (SQ) ---
EXAM DESCRIPTION: MRI of the brain without and with gadolinium. CLINICAL HISTORY: 69 years Male Lung cancer, new onset seizure-like activity COMPARISON: CT of the head from today. TECHNIQUE: Multiplanar multisequence images of the brain without and with gadolinium. Gadolinium dose was not provided. FINDINGS: Normal size ventricles. Mild to moderate cortical atrophy. [id number] periventricular white matter changes. No abnormal diffusion. Gradient echo images are unremarkable. No suspicious abnormality of the hippocampus. No abnormal enhancement. Pituitary gland is unremarkable. Nasal turbinates are swollen. Mild diffuse paranasal sinus disease. IMPRESSION: 1. Mild to moderate cortical atrophy and periventricular white matter changes. 2. No acute intra-axial or extra-axial lesions. No suspicious abnormal enhancement. 3. Nasal turbinate swelling. Mild diffuse inflammatory changes in the paranasal sinuses.
[2019-05-13 19:49] VITALS: BP 128/77
== END 2019-05-12 23:06 | disposition home or self-care (01) ==
LOC: ER 16:51
DX: R68.89 Other general symptoms and signs (principal); C34.12 Malignant neoplasm of upper lobe, left bronchus or lung; I10 Essential (primary) hypertension; E11.40 Type 2 diabetes mellitus with diabetic neuropathy, unspecified; G31.9 Degenerative disease of nervous system, unspecified; R00.0 Tachycardia, unspecified; M54.9 Dorsalgia, unspecified; G89.29 Other chronic pain; R01.1 Cardiac murmur, unspecified; F17.210 Nicotine dependence, cigarettes, uncomplicated; F32.9 Major depressive disorder, single episode, unspecified; Z79.899 Other long term (current) drug therapy
CPT/HCPCS: 93005; 36415; 83735; 84443; 85025; 80053; 81001; 70553; 71045; 70450; 93010; A9270

== ENCOUNTER 2019-06-14 11:03 | Inpatient (IN) | payer MEDICARE, BC ==
[2019-06-14] MEDS ORDERED: HYDROMORPHONE HCL INJ/PF 2 MG/ML AMPULE IV ONE ×2 (11:25→14:31)
[2019-06-14] MEDS ORDERED: ONDANSETRON 4 MG TAB.RAPDIS PO ONE (11:25)
--- NOTE | 2019-06-14 11:29 | ER Document Report ---
ED General Pain - General Chief Complaint: Back Pain Stated Complaint: BACK PAIN Time Seen by Provider: 06/14/19 11:16 Primary Care Provider: GRACE FRANCO MD [Primary Care Provider] - Follow up as needed Mode of Arrival: Stretcher Information source: Patient, Relative Notes: History of Present Illness Chief Complaint: Back pain 69 years old male with chronic lower back pain, ran out of his pain medication last Friday, since then the pain is increase in intensity. He also diagnosed with lung cancer, with no metastases according to the . Received chemotherapy, he is too weak to have radiation therefore it was not started yet. Also complained of general weakness and malaise. Denies any chest pain or shortness of breath. Denies any fever chills or other constitutional symptoms. Diffuse abdominal discomfort. Denies any diarrhea or constipation. Denies any dysuria. History obtained from patient Symptoms began: Today Mechanism: As above Onset: Gradual Timing: Constant Quality: "pain" Intensity: Severe Location: Lumbar Radiation: None Migration: None Aggravating factors: Movement Relieving factors: None Denies significant traumatic injury Denies weakness, numbness, incontinence Denies IV drug use Review of Systems: All other systems negative as reviewed. CONSTITUTIONAL No fever, No chills. EYES No eye pain. ENT No URI symptoms, No sore throat, No ear pain. CARDIOVASCULAR No chest pain, No palpitations, No edema. RESPIRATORY No Cough, No SOB, No wheezing. GASTROINTESTINAL As per history of complain GENITOURINARY No UTI symptoms, No bleeding. MUSCULOSKELETAL + back pain. SKIN No Rash. NEUROLOGIC No Headache, No recent seizures, No paralysis, No parathesias. Physical Exam CONSTITUTIONAL Vital signs reviewed, uncomfortable, Alert and oriented X 3. Cachexia of malignancy HEAD Atraumatic, Normal cephalic. EYES No discharge from eyes, Sclera are not injected, Extraocular muscles intact, Conjunctiva are normal. ENT Ears normal to inspection, Nose examination normal, Oropharynx normal, Mucous membranes pink, moist, normal in color. NECK Normal ROM, No jugular venous distention, No meningeal signs, No carotid bruit. RESPIRATORY/CHEST Chest is non-tender, Breath sounds normal, No respiratory distress. CARDIOVASCULAR RRR, Heart sounds normal. ABDOMEN Abdomen is non-tender, No masses, Bowel sounds normal, No distension, No peritoneal signs. BACK Normal inspection. Diffuse paraspinal muscular tenderness noted over the lower lumbar region UPPER EXTREMITY Inspection normal, No cyanosis/clubbing/edema, 2+ radial pulses. LOWER EXTREMITY Inspection normal, No cyanosis/clubbing/edema, 2+ femoral pulses. NEURO Motor exam normal, Sensory exam normal. SKIN Skin is warm and dry, No rash. PSYCHIATRIC Normal affect. TRAVEL OUTSIDE OF THE [place] IN LAST 30 DAYS: No - HPI Notes: Dictated - Related Data Allergies/Adverse Reactions: No Known Allergies Allergy (Verified 05/12/19 16:52) Past Medical History - Social History Smoking Status: Current Every Day Smoker Frequency of alcohol use: None Drug Abuse: None Lives with: Family Family History: Reviewed & Not Pertinent Patient has suicidal ideation: No Patient has homicidal ideation: No - Past Medical History Cardiac Medical History: Reports: Hx Hypertension Pulmonary Medical History: Denies: Hx Tuberculosis Endocrine Medical History: Reports: Hx Diabetes Mellitus Type 2 - w/ neuropathy Renal/ Medical History: Reports: Hx Benign Prostatic Hyperplasia. Denies: Hx Peritoneal Dialysis Malignancy Medical History: Reports Hx Lung Cancer Musculoskeletal Medical History: Reports Hx Arthritis - back Psychiatric Medical History: Reports: Hx Bipolar Disorder, Hx Depression, Hx Post Traumatic Stress Disorder Denies: Hx Schizophrenia Past Surgical History: Reports: Hx Genitourinary Surgery - Bladder tumor re moved. Denies: Hx Pacemaker - Immunizations Hx Diphtheria, Pertussis, Tetanus Vaccination: No Review of Systems - Review of Systems Notes: Dictated Physical Exam - Vital signs Vitals: Temp Pulse Resp BP Pulse Ox 98.4 F 121 H 20 123/62 96 06/14/19 11:10 06/14/19 11:10 06/14/19 11:10 06/14/19 11:10 06/14/19 11:10 - Notes Notes: Dictated Course - Vital Signs Vital signs: Temp Pulse Resp BP Pulse Ox 98.4 F 121 H 20 123/62 96 06/14/19 11:10 06/14/19 11:10 06/14/19 11:10 06/14/19 11:10 06/14/19 11:10 06/14/19 14:55 Case was discussed with hospitalist and currently being admitted - Laboratory Result Diagrams: 06/14/19 11:24 06/14/19 11:24 Laboratory results interpreted by me: 06/14/19 06/14/19 11:24 11:24 WBC 13.7 H RBC 2.69 L Hgb 8.0 L Hct 24.0 L RDW 16.6 H Seg Neuts % (Manual) 87 H Lymphocytes % (Manual) 8 L Monocytes % (Manual) 1 L Metamyelocytes % 1 H Abs Neuts (Manual) 12.5 H Sodium 134.6 L Carbon Dioxide 21 L BUN 43 H Glucose 186 H AST 97 H Alkaline Phosphatase 905 H Total Protein 5.7 L Albumin 3.0 L - Diagnostic Test Radiology reviewed: Reports reviewed - Chest x-ray reported by radiologist as the tumor increase in size - EKG Interpretation by Ri Rate: Tachycardia - Sinus tachycardia 816 bpm normal axis no acute ST-T wave changes. Discharge - Discharge Clinical Impression: Dehydration, Lung tumor Pneumonia Qualifiers: Pneumonia type: due to unspecified organism Laterality: left Lung location: upper lobe of lung Qualified Code(s): J18.1 - Lobar pneumonia, unspecified organism Condition: Stable Disposition: ADMITTED INPATIENT Admitting Provider: Stefania (Hospitalist) Referrals: GRACE FRANCO MD [Primary Care Provider] - Follow up as needed
[2019-06-14 11:39] LABS: MEAN CORPUSCULAR HEMOGLOBIN 29.6 pg (27.0-33.4); MEAN CORPUSCULAR HGB CONC 33.1 g/dL (32.0-36.0); MEAN CORPUSCULAR VOLUME 90 fl (80-97); PLATELET COUNT 241 10^3/uL (150-450); RED BLOOD COUNT 2.69 10^6/uL (4.35-5.55); RED CELL DISTRIBUTION WIDTH 16.6 % (11.5-14.0); WHITE BLOOD COUNT 13.7 10^3/uL (4.0-10.5)
[2019-06-14 11:59] LABS: ALKALINE PHOSPHATASE 905 U/L (38-126); ANION GAP 12 (5-19); ASPARTATE AMINO TRANSFERASE 97 U/L (17-59); BILIRUBIN,DIRECT 0.4 mg/dL (0.0-0.4); BILIRUBIN,TOTAL 0.6 mg/dL (0.2-1.3); BLOOD UREA NITROGEN 43 mg/dL (7-20); CALCIUM 9.3 mg/dL (8.4-10.2); CARBON DIOXIDE 21 mmol/L (22-30); CHLORIDE 102 mmol/L (98-107); GLUCOSE 186 mg/dL (75-110); POTASSIUM 3.9 mmol/L (3.6-5.0); TOTAL PROTEIN 5.7 g/dL (6.3-8.2)
[2019-06-14] MEDS ORDERED: NORMAL SALINE 1000 ML 1,000 ML IV PRN (12:09)
[2019-06-14] MEDS ORDERED: NORMAL SALINE 1000 ML 1,000 ML IV ONE (12:09)
[2019-06-14 12:23] LABS: ABSOLUTE LYMPHOCYTES# (MANUAL) 1.1 10^3/uL (0.5-4.7); ABSOLUTE MONOCYTES # (MANUAL) 0.1 10^3/uL (0.1-1.4); BAND NEUTROPHILS % (MANUAL) 3 % (3-5); BASOPHILS % (MANUAL) 0 % (0-2); EOSINOPHILS % (MANUAL) 0 % (0-6); LYMPHOCYTES % (MANUAL) 8 % (13-45); METAMYELOCYTES % (MANUAL) 1 % (0); MONOCYTES % (MANUAL) 1 % (3-13); SEGMENTED NEUTROPHILS % (MAN) 87 % (42-78); TOTAL CELLS COUNTED 100
[2019-06-14 12:24] LABS: ANISOCYTOSIS 1+; PLATELET COMMENT ADEQUATE; POIKILOCYTOSIS SLIGHT; TEAR DROP CELLS SLIGHT
--- NOTE | 2019-06-14 13:04 | RADIOLOGY REPORT (SQ) ---
EXAM DESCRIPTION: ACUTE ABDOMEN SERIES COMPLETED DATE/TIME: 06/14/2019 12:53 pm REASON FOR STUDY: Abdominal pain COMPARISON: Chest x-ray dated 05/12/2019. NUMBER OF VIEWS: Three views. TECHNIQUE: Frontal chest, supine abdomen and upright/decubitus abdomen radiographic images acquired. LIMITATIONS: None. FINDINGS: CHEST: Lungs clear of infiltrates. Left upper lobe mass appears somewhat larger. FREE AIR: None. No abnormal gas collections. BOWEL GAS PATTERN: Nonobstructive pattern. No dilated loops or air fluid levels. CALCIFICATIONS: No suspicious calcifications. HARDWARE: None in the abdomen. SOFT TISSUES: No gross mass or suggestion of organomegaly. BONES: No acute fracture. Degenerative changes in the spine and hips. No worrisome bone lesions. OTHER: No other significant finding. IMPRESSION: 1. NO RADIOGRAPHIC EVIDENCE FOR ACUTE ABDOMINAL DISEASE. 2. THE LEFT UPPER LOBE LUNG MASS HAS INCREASED IN SIZE SINCE THE PRIOR STUDY. TECHNICAL DOCUMENTATION: JOB ID: [id number] [employer]- All Rights Reserved Reading location - IP/workstation name: [email or web address]
[2019-06-14] MEDS ORDERED: FENTANYL 25 MCG/HR PATCH.TD72 TD ONE (15:07)
[2019-06-14] MEDS ORDERED: ONDANSETRON HCL INJ/PF 4 MG/2 ML SDV IV PRN (15:07)
[2019-06-14] MEDS ORDERED: MAG HYDROX/AL HYDROX/SIMETH SUSP 30 ML UDCUP PO PRN (15:07)
--- NOTE | 2019-06-14 15:13 | RADIOLOGY REPORT (SQ) ---
EXAM DESCRIPTION: L SPINE WHOLE COMPLETED DATE/TIME: 06/14/2019 3:04 pm REASON FOR STUDY: Back pain COMPARISON: None. NUMBER OF VIEWS: Five views including obliques. TECHNIQUE: AP, lateral, oblique, and sacral radiographic images acquired of the lumbar spine. LIMITATIONS: None. FINDINGS: MINERALIZATION: Normal. SEGMENTATION: Normal. No transitional anatomy. ALIGNMENT: Normal. VERTEBRAE: Maintained height. No fracture or worrisome bone lesion. DISCS: Moderate multilevel disc space height loss and osteophytosis. POSTERIOR ELEMENTS: Severe multilevel facet degenerative change. No pars defect or posterior arch de fects. HARDWARE: None in the spine. PARASPINAL SOFT TISSUES: Normal. PELVIS: Intact as visualized. No fractures or worrisome bone lesions. SI joints intact. OTHER: No other significant finding. IMPRESSION: No fracture or dislocation of the lumbar spine. Moderate multilevel disc degenerative d isease and osteophytosis. Severe multilevel facet degenerative change. Lumbar disc and neural иван inal pathology may be further evaluated by MRI if indicated by localizing signs and symptoms. TECHNICAL DOCUMENTATION: JOB ID: [id number] [employer]- All Rights Reserved Reading location - IP/workstation name: [email or web address]
[2019-06-14] MEDS ORDERED: FENTANYL 50 MCG/HR PATCH.TD72 TD ONE (15:16)
[2019-06-14] MEDS ORDERED: DEXTROSE 50%-WATER 25 GM/50 ML DISP.SYRIN IV PRN ×2 (15:20)
[2019-06-14] MEDS ORDERED: DEXTROSE 40% GEL 15 GM TUBE PO PRN ×2 (15:20)
[2019-06-14] MEDS ORDERED: GLUCAGON,HUMAN RECOMB 1 MG INJ IM PRN (15:20)
--- NOTE | 2019-06-14 15:32 | PDOC H&P ---
History of Present Illness Admission Date/PCP: 06/14/2019 GRACE FRANCO MD Patient complains of: Intractable back pain History of Present Illness: EBONI TEE is a 69 year old male who presents with a history of right upper lobe neoplasm for which he had chemotherapy several months ago. Patient presents with intractable lower back pain at this time. Patient wears a fentanyl patch 12.5 mcg at home and he takes oxycodone 10 mg every 6 hours as needed. Patient states he been out of pain medication since this last Friday. Patient also complains of general weakness and malaise and shows some dehydration on laboratory database. He denies any other symptoms no fever, no chills or other constitutional symptoms. He has had no treatment prior to arrival other than T ylenol all at his aggravating factor. Past Medical History Cardiac Medical History: Reports: Hypertension Pulmonary Medical History: Denies: Tuberculosis Endocrine Medical History: Reports: Diabetes Mellitus Type 2 - w/ neuropathy Malignancy Medical History: Reports: Lung Cancer Musculoskeltal Medical History: Reports: Arthritis - back Psychiatric Medical History: Reports: Bipolar Disorder, Depression, Post Traumatic Stress Disorder Hematology: Reports: Anemia Past Surgical History Past Surgical History: Denies: Pacemaker Social History Information Source: Patient Lives with: Family Smoking Status: Current Every Day Smoker Cigarettes Packs Per Day: 0.5 Frequency of Alcohol Use: None Hx Recreational Drug Use: No Drugs: None Hx Prescription Drug Abuse: No - Advance Directive Resuscitation Status: Full Code Family History Family History: DM, Hypertension Parental Family History Reviewed: Yes Children Family History Reviewed: Yes Sibling(s) Family History Reviewed.: Yes Medication/Allergy Home Medications: Amlodipine Besylate [Norvasc 5 mg Tablet] 5 mg PO DAILY 12/16/11 Ferrous Sulfate 324 mg PO DAILY 12/16/11 Lamotrigine [Lamictal] 200 mg PO BID 12/16/11 Lisinopril [Prinivil] 20 mg PO DAILY 12/16/11 Metformin HCl [Glucophage] 1,000 mg PO BID 12/16/11 Tramadol HCl [Ultram 50 mg Tablet] 50 mg PO TID 12/16/11 Divalproex Sodium [Depakote Er 250 Mg Tablet] 250 mg PO BID 12/18/11 Clindamycin HCl [Cleocin 150 mg Capsule] 300 mg PO Q6 #56 capsule 04/07/16 Hydrocodone/Acetaminophen [[place] 5-325 mg Tablet] 1 tab PO Q4HP PRN #14 tablet 04/07/16 Prednisone [Deltasone 10 mg Tablet] 10 mg PO ASDIR PRN #21 tablet 04/07/16 Clindamycin HCl 300 mg PO BID #20 capsule 04/13/16 Cephalexin Monohydrate [Keflex 500 mg Capsule] 500 mg PO QID #40 capsule 05/27/17 Sulfamethoxazole/Trimethoprim [Bactrim Ds Tablet] 2 each PO BID #40 tablet 0 05/27/17 Allergies/Adverse Reactions: No Known Allergies Allergy (Verified 05/12/19 16:52) Review of Systems Constitutional: ABSENT: chills, fever(s), headache(s), weight gain, weight loss Eyes: ABSENT: visual disturbances Ears: ABSENT: hearing changes Cardiovascular: ABSENT: chest pain, dyspnea on exertion, edema, orthropnea, palpitations Respiratory: ABSENT: cough, hemoptysis Gastrointestinal: ABSENT: abdominal pain, constipation, diarrhea, hematemesis, hematochezia, nausea, vomiting Genitourinary: ABSENT: dysuria, hematuria Musculoskeletal: PRESENT: muscle weakness, other - Low back pain. ABSENT: joint swelling Integumentary: ABSENT: rash, wounds Neurological: ABSENT: abnormal gait, abnormal speech, confusion, dizziness, focal weakness, syncope Psychiatric: ABSENT: anxiety, depression, homidical ideation, suicidal ideation Endocrine: ABSENT: cold intolerance, heat intolerance, polydipsia, polyuria Hematologic/Lymphatic: ABSENT: easy bleeding, easy bruising Physical Exam Vital Signs: Temp Pulse Resp BP Pulse Ox 98.4 F 121 H 20 123/62 96 06/14/19 11:10 06/14/19 11:10 06/14/19 11:10 06/14/19 11:10 06/14/19 11:10 Intake & Output 06/13/19 06/14/19 06/15/19 06:59 06:59 06:59 Intake Total 1000 Balance 1000 Weight 84.9 kg General appearance: PRESENT: no acute distress, well-developed, well-nourished Head exam: PRESENT: atraumatic, normocephalic Eye exam: PRESENT: conjunctiva pink, EOMI, PERRLA. ABSENT: scleral icterus Ear exam: PRESENT: normal external ear exam Mouth exam: PRESENT: moist, tongue midline Neck exam: ABSENT: carotid bruit, JVD, lymphadenopathy, thyromegaly Respiratory exam: PRESENT: clear to auscultation gricel. ABSENT: rales, rhonchi, wheezes Cardiovascular exam: PRESENT: RRR. ABSENT: diastolic murmur, rubs, systolic murmur Pulses: PRESENT: normal dorsalis pedis pul Vascular exam: PRESENT: normal capillary refill GI/Abdominal exam: PRESENT: normal bowel sounds, soft. ABSENT: distended, guarding, mass, organolmegaly, rebound, tenderness Rectal exam: PRESENT: deferred Extremities exam: PRESENT: full ROM. ABSENT: calf tenderness, clubbing, pedal edema Neurological exam: PRESENT: alert, awake, oriented to person, oriented to place, oriented to time, oriented to situation, CN II-XII grossly intact. ABSENT: motor sensory deficit Psychiatric exam: PRESENT: appropriate affect, normal mood. ABSENT: homicidal ideation, suicidal ideation Skin exam: PRESENT: dry, intact, warm. ABSENT: cyanosis, rash Results Laboratory Results: 06/14/19 11:24 06/14/19 11:24 06/14/19 06/14/19 11:24 11:24 WBC 13.7 H RBC 2.69 L Hgb 8.0 L Hct 24.0 L MCV 90 MCH 29.6 MCHC 33.1 RDW 16.6 H Plt Count 241 Seg Neutrophils % Not Reportable Sodium 134.6 L Potassium 3.9 Chloride 102 Carbon Dioxide 21 L Anion Gap 12 BUN 43 H Creatinine 0.82 Est GFR ( Amer) > 60 Glucose 186 H Calcium 9.3 Total Bilirubin 0.6 AST 97 H Alkaline Phosphatase 905 H Total Protein 5.7 L Albumin 3.0 L Lipase 107.3 06/14/19 11:24 Troponin I 0.026 Impressions: Acute Abdomen Series 06/14/19 11:25 IMPRESSION: 1. NO RADIOGRAPHIC EVIDENCE FOR ACUTE ABDOMINAL DISEASE. 2. THE LEFT UPPER LOBE LUNG MASS HAS INCREASED IN SIZE SINCE THE PRIOR STUDY. Lumbar Spine X-Ray 06/14/19 13:51 IMPRESSION: No fracture or dislocation of the lumbar spine. Moderate multilevel disc degenerative disease and osteophytosis. Severe multilevel facet degenerative change. Lumbar disc and neural foraminal pathology may be further evaluated by MRI if indicated by localizing signs and symptoms. Assessment and Plan - Diagnosis (1) Intractable back pain Is this a current diagnosis for this admission?: Yes Plan: 06/14/2019-I have discussed this case with Dr. Lulú muñoz hematology oncology. I will place patient on fentanyl patch 50 mcg every 72 hours and Dilaudid 1 mg every [address] Chino from see patient in the a.m. in consultation and make adjustments pain medications as needed. (2) Dehydration Is this a current diagnosis for this admission?: Yes Plan: 06/14/2019-I will hydrate patient overnight with normal saline at 125 mL an hour repeat BMP in a.m. (3) Diabetes mellitus type 2 in nonobese Is this a current diagnosis for this admission?: Yes Plan: 06/14/2019-we will resume patient's home metformin once medication reconciliation is complete. Will give patient a carbohydrate diet and a sliding scale insulin before meals and at bedtime. Continue to follow (4) Leukocytosis Is this a current diagnosis for this admission?: Yes Plan: 06/14/2019-patient has a white count of 13,000 at this time. Chest x-rays does not show any infiltrates and I am awaiting urinalysis. I will start patient on Rocephin 1 g IV daily until this testing returned. (5) Anemia Is this a current diagnosis for this admission?: Yes Plan: 06/14/2019-chronic continue to follow daily CBCs (6) Failure to thrive Is this a current diagnosis for this admission?: Yes Plan: 06/14/2019-at this time will start patient on Megace 200 mg p.o. daily and will ensure he gets a Glucerna with each meal. - Time Time Spent with patient: 35 or more minutes - Inpatient Certification Based on my medical assessment, after consideration of the patient's comorbidities, presenting symptoms, or acuity I expect that the services needed warrant INPATIENT care.: Yes I certify that my determination is in accordance with my understanding of Medicare's requirements for reasonable and necessary INPATIENT services [42 CFR 412.3e].: Yes Medical Necessity: Other - IV fluids, IV pain control
[2019-06-14] MEDS: CEFTRIAXONE 1 GM/D5W RTU 1 GM/50 ML RTUPB IV SCH (16:16)
[2019-06-14] MEDS: NORMAL SALINE 1000 ML 1,000 ML IV PRN (16:16)
[2019-06-14] MEDS: INSULIN REG, HUMAN 100 UNIT/ML 3 ML VIAL (PYX) SUBCUT SCH ×2 (16:18→23:04)
[2019-06-14] MEDS: HYDROMORPHONE HCL INJ/PF 2 MG/ML AMPULE IV PRN ×2 (18:07→23:01)
[2019-06-14 20:19] LABS: APPEARANCE,URINE CLEAR; BILIRUBIN,URINE NEGATIVE (NEGATIVE); COLOR,URINE YELLOW; GLUCOSE, URINE NEGATIVE (NEGATIVE); KETONES,URINE NEGATIVE (NEGATIVE); LEUKOCYTE ESTERASE,URINE NEGATIVE (NEGATIVE); NITRITE,URINE NEGATIVE (NEGATIVE); PROTEIN,URINE NEGATIVE (NEGATIVE); URINE SPECIFIC GRAVITY 1.015; UROBILINOGEN,URINE NEGATIVE mg/dL (<2.0)
[2019-06-14] MEDS: ACETAMINOPHEN 325 MG TABLET PO PRN (21:09)
--- NOTE | 2019-06-14 22:29 | EKG REPORT ---
SEVERITY:- OTHERWISE NORMAL ECG - SINUS TACHYCARDIA : Confirmed by: Ema Bustamante 14-Jun-2019 22:28:29
[2019-06-14] MEDS: HEPARIN SOD (PORCINE) 5,000 UNIT/ML 1 ML VIAL SUBCUT SCH (23:02)
[2019-06-15] MEDS: ACETAMINOPHEN 325 MG TABLET PO PRN (01:21)
[2019-06-15] MEDS: ZOLPIDEM TARTRATE 5 MG TABLET PO PRN ×2 (01:21→22:42)
[2019-06-15] MEDS: HYDROMORPHONE HCL INJ/PF 2 MG/ML AMPULE IV PRN ×6 (04:22→18:27)
[2019-06-15] MEDS: HEPARIN SOD (PORCINE) 5,000 UNIT/ML 1 ML VIAL SUBCUT SCH ×3 (05:30→22:42)
[2019-06-15] MEDS: INSULIN REG, HUMAN 100 UNIT/ML 3 ML VIAL (PYX) SUBCUT SCH ×4 (07:33→22:45)
[2019-06-15 07:39] LABS: ANION GAP 9 (5-19); BLOOD UREA NITROGEN 33 mg/dL (7-20); CALCIUM 9.5 mg/dL (8.4-10.2); CARBON DIOXIDE 22 mmol/L (22-30); CHLORIDE 105 mmol/L (98-107); GLUCOSE 124 mg/dL (75-110); PHOSPHORUS 3.8 mg/dL (2.5-4.5); POTASSIUM 4.1 mmol/L (3.6-5.0)
[2019-06-15 07:42] LABS: ABSOLUTE LYMPHOCYTES (AUTO) 1.6 10^3/uL (0.5-4.7); ABSOLUTE MONOCYTES (AUTO) 1.2 10^3/uL (0.1-1.4); ABSOLUTE NEUT (AUTO) 11.4 10^3/uL (1.7-8.2); BASOPHILS % (AUTO) 0.1 % (0-2); HEMATOCRIT 23.1 % (37.9-51.0); LYMPHOCYTES % (AUTO) 11.1 % (13-45); MEAN CORPUSCULAR HEMOGLOBIN 29.4 pg (27.0-33.4); MEAN CORPUSCULAR HGB CONC 32.5 g/dL (32.0-36.0); MEAN CORPUSCULAR VOLUME 90 fl (80-97); MONOCYTES % (AUTO) 8.8 % (3-13); RED BLOOD COUNT 2.56 10^6/uL (4.35-5.55); RED CELL DISTRIBUTION WIDTH 16.6 % (11.5-14.0); TOTAL CELLS COUNTED % (AUTO) 100 %; WHITE BLOOD COUNT 14.2 10^3/uL (4.0-10.5)
[2019-06-15 08:18] LABS: HEMOGLOBIN 7.5 g/dL (13.5-17.0)
[2019-06-15 08:21] LABS: PLATELET COUNT 214 10^3/uL (150-450)
[2019-06-15] MEDS: MEGESTROL ACETATE SUSP 400 MG/10 ML UDCUP PO SCH (09:21)
[2019-06-15] MEDS: CEFTRIAXONE 1 GM/D5W RTU 1 GM/50 ML RTUPB IV SCH (09:22)
[2019-06-15] MEDS: NORMAL SALINE 1000 ML 1,000 ML IV PRN (09:27)
--- NOTE | 2019-06-15 14:30 | PDOC CONSULTATION ---
Consultation Consult Date: 06/15/19 Provider Consulted: KATHRINE HUFF Consult reason:: Hematology/Oncology consultation was requested for patient with known lung cancer and new back pain. History of Present Illness Admission Date/PCP: 06/14/19 15:37 GRACE FRANCO MD History of Present Illness: EBONI TEE is a 69 year old male who has been followed by Dr. Delacruz and treated for Squamous Cell lung cancer. He was diagnosed 01/19/2019. He received 3 cycles of paclitaxol/carboplatin which completed 03/16/2019. On 04/15/2019 he was evaluated at [facility] by Dr. Vega and was not felt to be a surgical ca ndidate. He is now being considered for concurrent chemo and radiation to the lung mass. However, patient states that over the last week he has had progressive back pain. It radiates down his leg. The pain medications have helped some, but it has continued to build up. He remembers having an MRI in the past at [facility], but he believes it was several months ago. He denies having been told that he had metastatic disease, or cancer involving the back or bones. Past Medical History Cardiac Medical History: Reports: Hypertension Pulmonary Medical History: Denies: Tuberculosis Endocrine Medical History: Reports: Diabetes Mellitus Type 2 - w/ neuropathy Malignancy Medical History: Reports: Lung Cancer Musculoskeltal Medical History: Reports: Arthritis - back Psychiatric Medical History: Reports: Bipolar Disorder, Depression, Post Traumatic Stress Disorder Hematology: Reports: Anemia Past Surgical History Past Surgical History: Denies: Pacemaker Social History Lives with: Family Smoking Status: Current Every Day Smoker Cigarettes Packs Per Day: 0.5 Frequency of Alcohol Use: None Hx Recreational Drug Use: No Drugs: None Hx Prescription Drug Abuse: No - Advance Directive Resuscitation Status: Full Code Family History Family History: DM, Hypertension Parental Family History Reviewed: Yes Children Family History Reviewed: Yes Sibling(s) Family History Reviewed.: Yes Medication/Allergy Home Medications: Fentanyl [Duragesic 12 Mcg/Hr Transdermal Patch] 1 patch TOP Q3D 06/14/19 Ferrous Sulfate [Feosol 325 mg Tablet] 325 mg PO BID 06/14/19 Hydrochlorothiazide [Hydrodiuril 12.5 mg Tablet] 12.5 mg PO DAILY 06/14/19 Lamotrigine [Lamictal] 200 mg PO BID 06/14/19 Metformin HCl [Glucophage 500 mg Tablet] 500 mg PO DAILY 06/14/19 Prazosin HCl [Minipress] 5 mg PO QHS 06/14/19 Sertraline HCl [Zoloft] 200 mg PO DAILY 06/14/19 Tamsulosin HCl [Flomax 0.4 mg Cap.sr] 0.4 mg PO DAILY 06/14/19 Zolpidem Tartrate [Ambien] 10 mg PO QHS 06/14/19 Allergies/Adverse Reactions: No Known Allergies Allergy (Verified 06/14/19 16:25) Review of Systems Constitutional: ABSENT: fever(s), headache(s) Eyes: ABSENT: visual disturbances Ears: ABSENT: hearing changes Nose, Mouth, and Throat: ABSENT: sore throat Cardiovascular: ABSENT: chest pain Respiratory: ABSENT: dyspnea Gastrointestinal: ABSENT: constipation, nausea Genitourinary: ABSENT: dysuria Musculoskeletal: PRESENT: back pain Integumentary: ABSENT: rash Neurological: PRESENT: weakness. ABSENT: paresthesias Hematologic/Lymphatic: ABSENT: easy bleeding Physical Exam Vital Signs: Temp Pulse Resp BP Pulse Ox 98.2 F 124 H 23 H 148/71 H 91 L 06/15/19 11:29 06/15/19 11:29 06/15/19 11:29 06/15/19 11:29 06/15/19 11:29 Intake & Output 06/14/19 06/15/19 06/16/19 06:59 06:59 06:59 Intake Total 2750 Output Total 600 Balance 2150 Weight 81.7 kg General appearance: PRESENT: no acute distress, well-developed, well-nourished Exam: 69 year old male. Head exam: PRESENT: atraumatic, normocephalic Eye exam: PRESENT: EOMI Mouth exam: PRESENT: tongue midline Neck exam: ABSENT: lymphadenopathy, tenderness Respiratory exam: PRESENT: clear to auscultation gricel, unlabored Cardiovascular exam: PRESENT: RRR GI/Abdominal exam: PRESENT: soft. ABSENT: tenderness Extremities exam: ABSENT: pedal edema Neurological exam: PRESENT: alert, awake, other - Full neuro exam deferred due to pain. Skin exam: PRESENT: normal color Results Laboratory Results: 06/15/19 06:21 06/15/19 06:21 06/14/19 06/15/19 06/15/19 19:48 06:21 06:21 WBC 14.2 H RBC 2.56 L Hgb 7.5 L Hct 23.1 L MCV 90 MCH 29.4 MCHC 32.5 RDW 16.6 H Plt Count 214 Seg Neutrophils % 80.0 H Sodium 136.0 L Potassium 4.1 Chloride 105 Carbon Dioxide 22 Anion Gap 9 BUN 33 H Creatinine 0.70 Est GFR ( Amer) > 60 Glucose 124 H Calcium 9.5 Phosphorus 3.8 Magnesium 2.1 Urine Color YELLOW Urine Appearance CLEAR Urine pH 5.0 Ur Specific [place] 1.015 Urine Protein NEGATIVE Urine Glucose (UA) NEGATIVE Urine Ketones NEGATIVE Urine Blood NEGATIVE Urine Nitrite NEGATIVE Ur Leukocyte Esterase NEGATIVE Urine WBC (Auto) 1 Urine RBC (Auto) 1 06/14/19 11:24 Troponin I 0.026 Impressions: Acute Abdomen Series 06/14/19 11:25 IMPRESSION: 1. NO RADIOGRAPHIC EVIDENCE FOR ACUTE ABDOMINAL DISEASE. 2. THE LEFT UPPER LOBE LUNG MASS HAS INCREASED IN SIZE SINCE THE PRIOR STUDY. Lumbar Spine X-Ray 06/14/19 13:51 IMPRESSION: No fracture or dislocation of the lumbar spine. Moderate multilevel disc degenerative disease and osteophytosis. Severe multilevel facet degenerative change. Lumbar disc and neural foraminal pathology may be further evaluated by MRI if indicated by localizing signs and symptoms. Assessment & Plan - Diagnosis (1) Lung cancer Qualifiers: Laterality: left Lung location: upper lobe of lung Qualified Code(s): C 34.12 - Malignant neoplasm of upper lobe, left bronchus or lung Is this a current diagnosis for this admission?: Yes Plan: Consider concurrent radiation and chemotherapy for the primary lesion. Past PET and MRI of the brain have shown no evidence of metastases. (2) Intractable back pain Is this a current diagnosis for this admission?: Yes Plan: I will check MRI of the back to make sure no evidence of bone mets or cord compression. Continue with pain medications for now. I'm not sure why the duragesic was stopped. I will try to make sure he has both long acting and PRN pain meds. - Plan Summary Plan Summary: I will continue to follow patient with you. Thank you for this consultation.
[2019-06-15] MEDS ORDERED: HYDROMORPHONE HCL INJ/PF 2 MG/ML AMPULE ONE (16:17)
--- NOTE | 2019-06-15 16:44 | PDOC PROGRESS REPORT ---
Subjective Progress Note for:: 06/15/19 Subjective:: No adverse events overnight. No new complaints, still complaining of back pain. He said that he has had back pain for years but he came in to the hospital because it is gotten worse. He has not had any imaging of his spine done recently except for the plain films done this admission. He said he was supposed to go start for his cancer treatment but has not started it yet. Reason For Visit: INTRACTABLE BACK PAIN, DEHYDRATION Physical Exam Vital Signs: Temp Pulse Resp BP Pulse Ox 98.2 F 124 H 23 H 148/71 H 91 L 06/15/19 11:29 06/15/19 11:29 06/15/19 11:29 06/15/19 11:29 06/15/19 11:29 Intake & Output 06/14/19 06/15/19 06/16/19 06:59 06:59 06:59 Intake Total 2750 50 Output Total 600 Balance 2150 50 Weight 81.7 kg General appearance: PRESENT: no acute distress, cooperative, disheveled Respiratory exam: PRESENT: clear to auscultation gricel, symmetrical, unlabored. ABSENT: accessory muscle use, chest wall tenderness, crackles, prolonged expiratory phas, rhonchi, tachypnea, wheezes Cardiovascular exam: PRESENT: RRR, +S1, +S2 Pulses: PRESENT: normal carotid pulses Vascular exam: PRESENT: normal capillary refill GI/Abdominal exam: PRESENT: normal bowel sounds, soft. ABSENT: distended, guarding, rebound, tenderness Extremities exam: ABSENT: clubbing, pedal edema Musculoskeletal exam: PRESENT: normal inspection. ABSENT: deformity Neurological exam: PRESENT: alert, awake, oriented to person, oriented to place, oriented to situation Psychiatric exam: PRESENT: anxious Skin exam: PRESENT: dry, warm Results Laboratory Results: 06/15/19 06:21 06/15/19 06:21 06/14/19 06/15/19 06/15/19 19:48 06:21 06:21 WBC 14.2 H RBC 2.56 L Hgb 7.5 L Hct 23.1 L MCV 90 MCH 29.4 MCHC 32.5 RDW 16.6 H Plt Count 214 Seg Neutrophils % 80.0 H Sodium 136.0 L Potassium 4.1 Chloride 105 Carbon Dioxide 22 Anion Gap 9 BUN 33 H Creatinine 0.70 Est GFR ( Amer) > 60 Glucose 124 H Calcium 9.5 Phosphorus 3.8 Magnesium 2.1 Urine Color YELLOW Urine Appearance CLEAR Urine pH 5.0 Ur Specific [place] 1.015 Urine Protein NEGATIVE Urine Glucose (UA) NEGATIVE Urine Ketones NEGATIVE Urine Blood NEGATIVE Urine Nitrite NEGATIVE Ur Leukocyte Esterase NEGATIVE Urine WBC (Auto) 1 Urine RBC (Auto) 1 06/14/19 11:24 Troponin I 0.026 Impressions: Acute Abdomen Series 06/14/19 11:25 IMPRESSION: 1. NO RADIOGRAPHIC EVIDENCE FOR ACUTE ABDOMINAL DISEASE. 2. THE LEFT UPPER LOBE LUNG MASS HAS INCREASED IN SIZE SINCE THE PRIOR STUDY. Lumbar Spine X-Ray 06/14/19 13:51 IMPRESSION: No fracture or dislocation of the lumbar spine. Moderate multilevel disc degenerative disease and osteophytosis. Severe multilevel facet degenerative change. Lumbar disc and neural foraminal pathology may be further evaluated by MRI if indicated by localizing signs and symptoms. Assessment and Plan - Diagnosis (1) Intractable back pain Is this a current diagnosis for this admission?: Yes Plan: He is on some pain medication including Duragesic patch and some PRN medications. He is getting some imaging of his spine to rule out metastatic disease as a source of his pain. (2) Lung cancer Qualifiers: Laterality: left Lung location: upper lobe of lung Qualified Code(s): C34.12 - Malignant neoplasm of upper lobe, left bronchus or lung Is this a current diagnosis for this admission?: Yes Plan: Oncology is consulted, he will continue outpatient follow-up (3) Anemia Qualifiers: Anemia type: unspecified type Qualified Code(s): D64.9 - Anemia, unspecified Is this a current diagnosis for this admission?: Yes Plan: He is been anemic since earlier this year. We will check an iron panel and a B12 and folate. No evidence of any bleeding, nor anything in the history to suggest it. - Time Time Spent with patient: 15-24 minutes
--- NOTE | 2019-06-15 18:24 | RADIOLOGY REPORT (SQ) ---
EXAM DESCRIPTION: MRI THORACIC SPINE COMBO; MRI LUMBAR SPINE COMBO COMPLETED DATE/TIME: 06/15/2019 5:45 pm REASON FOR STUDY: Pain in patient with lung cancer. ?Cord compress COMPARISON: CT chest 11/30/2018 TECHNIQUE: MRI of the thoracic and lumbar spine was performed without and with contrast. Sagittal a nd Axial imaging includes T1, T2, STIR and gradient echo sequences. T1 post gadolinium sequences. CONTRAST TYPE AND DOSE: 15 mL Dotarem. RENAL FUNCTION: Not indicated. ACR Type II contrast agent associated with few, if any, unconfounded cases of NSF LIMITATIONS: None. FINDINGS: On the sagittal postcontrast T1 weighted images through the thoracic spine, a rind of epid ural tumor is present within the spinal canal from the T5 to the mid T8 level, seen as enhancing soft tissue along the neural foramina and in the lateral right and lateral left spinal canal. There is s ome effacement of the CSF around the thoracic cord without definite cord flattening. No abnormal int rinsic cord signal. In the upper thoracic spine, abnormal marrow in the 3rd 4th and 5th ribs is seen bilaterally, with ex traosseous tumor extending into the spinal canal dorsally. No definite cord compression. There is a 15 mm nodule in the canal to the right of midline at the T3-4 level which is worrisome for epidural tumor. There is displacement of the spinal cord to the left in the canal, without cord compression. This is best shown on sagittal image 9 and axial image 16. The thoracic spinal cord is normal in signal without edema or enhancement. Conus is at the L1 level. There are no compression deformities in the thoracic spine. MRI lumbar spine demonstrates no gross epidural tumor. There is abnormal marrow in the L1, L2, L3 ve rtebral bodies without compression deformity. Lumbar disc level L1-2 is unremarkable. At L2-3, borderline central canal narrowing and mild foramin al narrowing results from bulky facet arthropathy. At L3-4, high-grade central canal stenosis results from broad diffuse posterior disc bulging and bulk y bilateral facet and ligament hypertrophy. There is effacement of the CSF around the lumbar nerve r oots best shown on axial T2 image 19. Moderate bilateral foraminal narrowing is present. At L4-5, no significant central or foraminal stenosis is present. Very bulky bilateral facet arthrop athy. At L5-S1, moderate facet hypertrophy is present without central or foraminal stenosis. These findings were discussed with Dr. Jeter. 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 TECHNICAL DOCUMENTATION: JOB ID: [id number] [employer]- All Rights Reserved Reading location - IP/workstation name: [email or web address]
[2019-06-15] MEDS: DEXAMETHASONE 4 MG TABLET PO SCH (22:42)
[2019-06-15] MEDS: FAMOTIDINE 20 MG TABLET PO SCH (22:42)
[2019-06-16] MEDS: HYDROMORPHONE HCL INJ/PF 2 MG/ML AMPULE IV PRN ×7 (01:57→23:28)
[2019-06-16] MEDS: HEPARIN SOD (PORCINE) 5,000 UNIT/ML 1 ML VIAL SUBCUT SCH ×3 (05:29→21:51)
[2019-06-16] MEDS ORDERED: FENTANYL 75 MCG/HR PATCH.TD72 TD SCH (08:00)
[2019-06-16] MEDS: INSULIN REG, HUMAN 100 UNIT/ML 3 ML VIAL (PYX) SUBCUT SCH ×4 (08:11→21:51)
--- NOTE | 2019-06-16 08:31 | PDOC PROGRESS REPORT ---
Subjective Progress Note for:: 06/16/19 Subjective:: Patient is having a lot of pain, reviewed MRI, there is significant epidural tumor in the thoracic spine. But there is also degenerative changes along with disc disease in the lumbar spine, central canal stenosis. He is getting Dilaudid 1 mg IV and this is not controlling pain. Reason For Visit: INTRACTABLE BACK PAIN, DEHYDRATION Physical Exam Vital Signs: Temp Pulse Resp BP Pulse Ox 98.6 F 102 H 18 154/62 H 96 06/16/19 08:00 06/16/19 08:00 06/16/19 08:00 06/16/19 08:00 06/16/19 08:00 Intake & Output 06/15/19 06/16/19 06/17/19 06:59 06:59 06:59 Intake Total 2750 490 Output Total 600 650 Balance 2150 -160 Weight 81.7 kg 85 kg General appearance: PRESENT: no acute distress, well-developed, well-nourished Head exam: PRESENT: atraumatic, normocephalic Eye exam: PRESENT: conjunctiva pink, EOMI, PERRLA. ABSENT: scleral icterus Ear exam: PRESENT: normal external ear exam Mouth exam: PRESENT: moist, tongue midline Neck exam: ABSENT: carotid bruit, JVD, lymphadenopathy, thyromegaly Respiratory exam: PRESENT: clear to auscultation gricel. ABSENT: rales, rhonchi, wheezes Cardiovascular exam: PRESENT: RRR. ABSENT: diastolic murmur, rubs, systolic murmur Pulses: PRESENT: normal dorsalis pedis pul Vascular exam: PRESENT: normal capillary refill GI/Abdominal exam: PRESENT: normal bowel sounds, soft. ABSENT: distended, guarding, mass, organolmegaly, rebound, tenderness Rectal exam: PRESENT: deferred Extremities exam: PRESENT: full ROM. ABSENT: calf tenderness, clubbing, pedal edema Neurological exam: PRESENT: alert, awake, oriented to person, oriented to place, oriented to time, oriented to situation, CN II-XII grossly intact. ABSENT: motor sensory deficit Psychiatric exam: PRESENT: appropriate affect, normal mood. ABSENT: homicidal ideation, suicidal ideation Skin exam: PRESENT: dry, intact, warm. ABSENT: cyanosis, rash Results Laboratory Results: 06/14/19 11:24 Troponin I 0.026 Impressions: Acute Abdomen Series 06/14/19 11:25 IMPRESSION: 1. NO RADIOGRAPHIC EVIDENCE FOR ACUTE ABDOMINAL DISEASE. 2. THE LEFT UPPER LOBE LUNG MASS HAS INCREASED IN SIZE SINCE THE PRIOR STUDY. Lumbar Spine X-Ray 06/14/19 13:51 IMPRESSION: No fracture or dislocation of the lumbar spine. Moderate multilevel disc degenerative disease and osteophytosis. Severe multilevel facet degenerative change. Lumbar disc and neural foraminal pathology may be further evaluated by MRI if indicated by localizing signs and symptoms. Lumbar Spine MRI 06/15/19 14:15 IMPRESSION: Epidural tumor in the upper thoracic spine Degenerative central canal high-grade stenosis at L3-4. Thoracic Spine MRI 06/15/19 14:16 IMPRESSION: Epidural tumor in the upper thoracic spine Degenerative central canal high-grade stenosis at L3-4. 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 Plan for radiation oncology consultation. We will need to hold on radiation to the lung at this point. (2) Intractable back pain Is this a current diagnosis for this admission?: Yes Plan: Secondary in part to the epidural tumor but probably also secondary to degenerative disease and disc disease in the low back. I will increase his fentanyl to 75 mcg, increase Dilaudid to 2 mg IV every 2 hours.
[2019-06-16 08:52] LABS: ANION GAP 10 (5-19); BLOOD UREA NITROGEN 23 mg/dL (7-20); CALCIUM 9.7 mg/dL (8.4-10.2); CARBON DIOXIDE 21 mmol/L (22-30); CHLORIDE 106 mmol/L (98-107); GLUCOSE 189 mg/dL (75-110); IRON(TIBC) 29.7 ug/dL (49-181); POTASSIUM 4.2 mmol/L (3.6-5.0)
[2019-06-16 09:00] LABS: ABSOLUTE LYMPHOCYTES (AUTO) 0.9 10^3/uL (0.5-4.7); ABSOLUTE MONOCYTES (AUTO) 0.5 10^3/uL (0.1-1.4); ABSOLUTE NEUT (AUTO) 10.9 10^3/uL (1.7-8.2); ABSOLUTE RETICS # 0.037 10^6/uL (0.028-0.122); HEMATOCRIT 20.7 % (37.9-51.0); LYMPHOCYTES % (AUTO) 7.1 % (13-45); MEAN CORPUSCULAR HEMOGLOBIN 29.6 pg (27.0-33.4); MEAN CORPUSCULAR HGB CONC 32.9 g/dL (32.0-36.0); MEAN CORPUSCULAR VOLUME 90 fl (80-97); PLATELET COUNT 182 10^3/uL (150-450); RED CELL DISTRIBUTION WIDTH 16.6 % (11.5-14.0); RETICULOCYTE COUNT (AUTO) 1.61 % (0.66-2.85); SEGMENTED NEUTROPHILS % (AUTO) 88.9 % (42-78); TOTAL CELLS COUNTED % (AUTO) 100 %; WHITE BLOOD COUNT 12.3 10^3/uL (4.0-10.5)
[2019-06-16 09:06] LABS: HEMOGLOBIN 6.8 g/dL (13.5-17.0)
[2019-06-16 09:58] LABS: FOLATE 4.65 ng/mL (>2.76)
[2019-06-16] MEDS: FAMOTIDINE 20 MG TABLET PO SCH ×2 (10:49→21:51)
[2019-06-16] MEDS: DEXAMETHASONE 4 MG TABLET PO SCH ×2 (10:49→21:51)
[2019-06-16] MEDS: MEGESTROL ACETATE SUSP 400 MG/10 ML UDCUP PO SCH (10:49)
[2019-06-16] MEDS: NORMAL SALINE 1000 ML 1,000 ML IV PRN (12:45)
[2019-06-16] MEDS ORDERED: NORMAL SALINE 250 ML IV PRN ×2 (17:43)
--- NOTE | 2019-06-16 17:51 | PDOC PROGRESS REPORT ---
Subjective Progress Note for:: 06/16/19 Subjective:: No adverse events overnight. Dr. Chisholm saw him this morning and increased his pain medication. Vital signs been stable. Reason For Visit: INTRACTABLE BACK PAIN, DEHYDRATION Physical Exam Vital Signs: Temp Pulse Resp BP Pulse Ox 97.6 F 113 H 20 182/86 H 98 06/16/19 15:24 06/16/19 15:24 06/16/19 15:24 06/16/19 15:24 06/16/19 15:24 Intake & Output 06/15/19 06/16/19 06/17/19 06:59 06:59 06:59 Intake Total 2750 1490 168 Output Total 600 650 300 Balance 2150 840 -132 Weight 81.7 kg 85 kg General appearance: PRESENT: no acute distress, cooperative, disheveled Respiratory exam: PRESENT: clear to auscultation gricel, symmetrical, unlabored. ABSENT: accessory muscle use, chest wall tenderness, crackles, prolonged expiratory phas, rhonchi, tachypnea, wheezes Cardiovascular exam: PRESENT: RRR, +S1, +S2 Pulses: PRESENT: normal carotid pulses Vascular exam: PRESENT: normal capillary refill GI/Abdominal exam: PRESENT: normal bowel sounds, soft. ABSENT: distended, guarding, rebound, tenderness Extremities exam: ABSENT: clubbing, pedal edema Musculoskeletal exam: PRESENT: normal inspection. ABSENT: deformity Neurological exam: PRESENT: alert, awake, oriented to person, oriented to place, oriented to situation Skin exam: PRESENT: dry, warm General appearance: PRESENT: cooperative Results Laboratory Results: 06/16/19 08:00 06/16/19 08:00 06/16/19 06/16/19 08:00 08:00 WBC 12.3 H RBC 2.30 L Hgb 6.8 L Hct 20.7 L MCV 90 MCH 29.6 MCHC 32.9 RDW 16.6 H Plt Count 182 Seg Neutrophils % 88.9 H Retic Count (auto) 1.61 Sodium 136.6 L Potassium 4.2 Chloride 106 Carbon Dioxide 21 L Anion Gap 10 BUN 23 H Creatinine 0.55 Est GFR ( Amer) > 60 Glucose 189 H Calcium 9.7 Iron 29.7 L TIBC 159 L % Saturation 19 Ferritin 2360.00 H Vitamin B12 871.0 Folate 4.65 06/14/19 11:24 Troponin I 0.026 Impressions: Acute Abdomen Series 06/14/19 11:25 IMPRESSION: 1. NO RADIOGRAPHIC EVIDENCE FOR ACUTE ABDOMINAL DISEASE. 2. THE LEFT UPPER LOBE LUNG MASS HAS INCREASED IN SIZE SINCE THE PRIOR STUDY. Lumbar Spine X-Ray 06/14/19 13:51 IMPRESSION: No fracture or dislocation of the lumbar spine. Moderate multilevel disc degenerative disease and osteophytosis. Severe multilevel facet degenerative change. Lumbar disc and neural foraminal pathology may be further evaluated by MRI if indicated by localizing signs and symptoms. Lumbar Spine MRI 06/15/19 14:15 IMPRESSION: Epidural tumor in the upper thoracic spine Degenerative central canal high-grade stenosis at L3-4. Thoracic Spine MRI 06/15/19 14:16 IMPRESSION: Epidural tumor in the upper thoracic spine Degenerative central canal high-grade stenosis at L3-4. Assessment and Plan - Diagnosis (1) Intractable back pain Is this a current diagnosis for this admission?: Yes Plan: His MRI looks pretty bad with pretty severe degenerative disease and bony hypertrophy due to facet arthropathy, in addition to the pathological lesions noted in the ribs and thoracic spine. Pain medication increased today as noted above. (2) Lung cancer Qualifiers: Laterality: left Lung location: upper lobe of lung Qualified Code(s): C34.12 - Malignant neoplasm of upper lobe, left bronchus or lung Is this a current diagnosis for this admission?: Yes Plan: Oncology is consulted, he will continue outpatient follow-up (3) Anemia Qualifiers: Anemia type: unspecified type Qualified Code(s): D64.9 - Anemia, unspecified Is this a current diagnosis for this admission?: Yes Plan: He is not bleeding, but his hemoglobin dropped a little bit more today. Getting given 2 units of packed red blood cells. 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
[2019-06-16] MEDS: ZOLPIDEM TARTRATE 5 MG TABLET PO PRN (22:07)
[2019-06-17] MEDS: HYDROMORPHONE HCL INJ/PF 2 MG/ML AMPULE IV PRN ×6 (03:02→20:53)
[2019-06-17 04:47] LABS: HEMATOCRIT 20.9 % (37.9-51.0); MEAN CORPUSCULAR HEMOGLOBIN 29.7 pg (27.0-33.4); MEAN CORPUSCULAR HGB CONC 33.4 g/dL (32.0-36.0); MEAN CORPUSCULAR VOLUME 89 fl (80-97); PLATELET COUNT 186 10^3/uL (150-450); RED BLOOD COUNT 2.36 10^6/uL (4.35-5.55); RED CELL DISTRIBUTION WIDTH 16.7 % (11.5-14.0); WHITE BLOOD COUNT 15.1 10^3/uL (4.0-10.5)
[2019-06-17 05:00] LABS: ANION GAP 13 (5-19); BLOOD UREA NITROGEN 31 mg/dL (7-20); CARBON DIOXIDE 20 mmol/L (22-30); CHLORIDE 106 mmol/L (98-107); GLUCOSE 151 mg/dL (75-110); POTASSIUM 4.5 mmol/L (3.6-5.0)
[2019-06-17 05:06] LABS: ABSOLUTE LYMPHOCYTES# (MANUAL) 1.8 10^3/uL (0.5-4.7); ABSOLUTE MONOCYTES # (MANUAL) 0.6 10^3/uL (0.1-1.4); BAND NEUTROPHILS % (MANUAL) 6 % (3-5); BASOPHILS % (MANUAL) 0 % (0-2); EOSINOPHILS % (MANUAL) 0 % (0-6); LYMPHOCYTES % (MANUAL) 12 % (13-45); MONOCYTES % (MANUAL) 4 % (3-13); SEGMENTED NEUTROPHILS % (MAN) 78 % (42-78); TOTAL CELLS COUNTED 100
[2019-06-17 05:07] LABS: ANISOCYTOSIS 1+; PLATELET COMMENT ADEQUATE
[2019-06-17] MEDS: HEPARIN SOD (PORCINE) 5,000 UNIT/ML 1 ML VIAL SUBCUT SCH ×3 (05:41→21:23)
[2019-06-17] MEDS: INSULIN REG, HUMAN 100 UNIT/ML 3 ML VIAL (PYX) SUBCUT SCH ×4 (08:19→21:23)
[2019-06-17] MEDS: FAMOTIDINE 20 MG TABLET PO SCH ×2 (09:33→21:23)
[2019-06-17] MEDS: MEGESTROL ACETATE SUSP 400 MG/10 ML UDCUP PO SCH (09:33)
[2019-06-17] MEDS: DEXAMETHASONE 4 MG TABLET PO SCH ×2 (09:59→21:26)
[2019-06-17] MEDS ORDERED: FENTANYL 50 MCG/HR PATCH.TD72 TD SCH (10:00)
--- NOTE | 2019-06-17 17:37 | PDOC PROGRESS REPORT ---
Subjective Progress Note for:: 06/17/19 Subjective:: No adverse events overnight. No new complaints. Vital signs been stable. Pain is been well controlled. Reason For Visit: INTRACTABLE BACK PAIN, DEHYDRATION Physical Exam Vital Signs: Temp Pulse Resp BP Pulse Ox 98.4 F 128 H 20 190/105 H 96 06/17/19 15:30 06/17/19 15:30 06/17/19 15:30 06/17/19 15:30 06/17/19 15:30 Intake & Output 06/16/19 06/17/19 06/18/19 06:59 06:59 06:59 Intake Total 1490 568 240 Output Total 650 1150 400 Balance 840 -582 -160 Weight 85 kg 83.9 kg General appearance: PRESENT: no acute distress, cooperative, disheveled Respiratory exam: PRESENT: clear to auscultation gricel, symmetrical, unlabored. ABSENT: accessory muscle use, chest wall tenderness, crackles, prolonged expiratory phas, rhonchi, tachypnea, wheezes Cardiovascular exam: PRESENT: RRR, +S1, +S2 Pulses: PRESENT: normal carotid pulses Vascular exam: PRESENT: normal capillary refill GI/Abdominal exam: PRESENT: normal bowel sounds, soft. ABSENT: distended, guarding, rebound, tenderness Extremities exam: ABSENT: clubbing, pedal edema Musculoskeletal exam: PRESENT: normal inspection. ABSENT: deformity Neurological exam: PRESENT: alert, awake, oriented to person, oriented to place, oriented to situation Skin exam: PRESENT: dry, warm General appearance: PRESENT: cooperative Results Laboratory Results: 06/17/19 03:58 06/17/19 03:58 06/16/19 06/17/19 06/17/19 18:32 03:58 03:58 WBC 15.1 H RBC 2.36 L Hgb 7.0 L Hct 20.9 L MCV 89 MCH 29.7 MCHC 33.4 RDW 16.7 H Plt Count 186 Seg Neutrophils % Not Reportable Sodium 138.7 Potassium 4.5 Chloride 106 Carbon Dioxide 20 L Anion Gap 13 BUN 31 H Creatinine 0.68 Est GFR ( Amer) > 60 Glucose 151 H Calcium 10.0 Blood Type O POSITIVE Antibody Screen NEGATIVE 06/14/19 11:24 Troponin I 0.026 Impressions: Acute Abdomen Series 06/14/19 11:25 IMPRESSION: 1. NO RADIOGRAPHIC EVIDENCE FOR ACUTE ABDOMINAL DISEASE. 2. THE LEFT UPPER LOBE LUNG MASS HAS INCREASED IN SIZE SINCE THE PRIOR STUDY. Lumbar Spine X-Ray 06/14/19 13:51 IMPRESSION: No fracture or dislocation of the lumbar spine. Moderate multilevel disc degenerative disease and osteophytosis. Severe multilevel facet degenerative change. Lumbar disc and neural foraminal pathology may be further evaluated by MRI if indicated by localizing signs and symptoms. Lumbar Spine MRI 06/15/19 14:15 IMPRESSION: Epidural tumor in the upper thoracic spine Degenerative central canal high-grade stenosis at L3-4. Thoracic Spine MRI 06/15/19 14:16 IMPRESSION: Epidural tumor in the upper thoracic spine Degenerative central canal high-grade stenosis at L3-4. Assessment and Plan - Diagnosis (1) Intractable back pain Is this a current diagnosis for this admission?: Yes Plan: His MRI looks pretty bad with pretty severe degenerative disease and bony hypertrophy due to facet arthropathy, in addition to the pathological lesions noted in the ribs and thoracic spine. Pain currently well controlled. (2) Lung cancer Qualifiers: Laterality: left Lung location: upper lobe of lung Qualified Code(s): C34.12 - Malignant neoplasm of upper lobe, left bronchus or lung Is this a current diagnosis for this admission?: Yes Plan: Oncology is consulted, he will continue outpatient follow-up. He has started radiation treatment. (3) Anemia Qualifiers: Anemia type: unspecified type Qualified Code(s): D64.9 - Anemia, unspeci fied Is this a current diagnosis for this admission?: Yes Plan: He would not allow them to give him packed red cells yesterday. His hemoglobin today is stable at 7. 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 The patient knows where he is and understands most of what is happening with him, but I believe that he either does not fully understand, or does not want to accept, the full gravity of his current situation.
[2019-06-17] MEDS: FERROUS SULFATE 325 MG TABLET PO SCH (17:50)
[2019-06-17] MEDS ORDERED: (PENDING PHARMACY ID) (Lamotrigine [Lamictal] 200 MG) PO SCH (18:00)
[2019-06-17] MEDS ORDERED: OXYCODONE HCL IR 5 MG TABLET PO PRN (18:30)
--- NOTE | 2019-06-17 20:05 | PDOC PROGRESS REPORT ---
Subjective Progress Note for:: 06/17/19 Subjective:: Patient was seen on morning rounds. He is complaining that he is not getting his Flomax and believe that this is causing problems with his bladder. He state that the pain continues, but he cannot say if it is better, worse, etc. Nurses are concerned about his mental sttus, as he does not seem able to give informed consent for blood product that have been ordered. Reason For Visit: INTRACTABLE BACK PAIN, DEHYDRATION Physical Exam Vital Signs: Temp Pulse Resp BP Pulse Ox 98.4 F 128 H 20 190/105 H 96 06/17/19 15:30 06/17/19 15:30 06/17/19 15:30 06/17/19 15:30 06/17/19 15:30 Intake & Output 06/16/19 06/17/19 06/18/19 06:59 06:59 06:59 Intake Total 1490 568 240 Output Total 650 1150 600 Balance 840 -222 -360 Weight 85 kg 83.9 kg General appearance: PRESENT: thin Head exam: PRESENT: normocephalic Respiratory exam: PRESENT: clear to auscultation gricel, unlabored Cardiovascular exam: PRESENT: RRR, systolic murmur - at apex GI/Abdominal exam: PRESENT: tenderness - suprapubic Extremities exam: ABSENT: pedal edema Neurological exam: PRESENT: alert, awake Psychiatric exam: PRESENT: appropriate affect Skin exam: PRESENT: normal color Results Laboratory Results: 06/17/19 03:58 06/17/19 03:58 06/17/19 06/17/19 03:58 03:58 WBC 15.1 H RBC 2.36 L Hgb 7.0 L Hct 20.9 L MCV 89 MCH 29.7 MCHC 33.4 RDW 16.7 H Plt Count 186 Seg Neutrophils % Not Reportable Sodium 138.7 Potassium 4.5 Chloride 106 Carbon Dioxide 20 L Anion Gap 13 BUN 31 H Creatinine 0.68 Est GFR ( Amer) > 60 Glucose 151 H Calcium 10.0 06/14/19 11:24 Troponin I 0.026 Impressions: Acute Abdomen Series 06/14/19 11:25 IMPRESSION: 1. NO RADIOGRAPHIC EVIDENCE FOR ACUTE ABDOMINAL DISEASE. 2. THE LEFT UPPER LOBE LUNG MASS HAS INCREASED IN SIZE SINCE THE PRIOR STUDY. Lumbar Spine X-Ray 06/14/19 13:51 IMPRESSION: No fracture or dislocation of the lumbar spine. Moderate multilevel disc degenerative disease and osteophytosis. Severe multilevel facet degenerative change. Lumbar disc and neural foraminal pathology may be further evaluated by MRI if indicated by localizing signs and symptoms. Lumbar Spine MRI 06/15/19 14:15 IMPRESSION: Epidural tumor in the upper thoracic spine Degenerative central canal high-grade stenosis at L3-4. Thoracic Spine MRI 06/15/19 14:16 IMPRESSION: Epidural tumor in the upper thoracic spine Degenerative central canal high-grade stenosis at L3-4. Assessment & Plan - Diagnosis (1) Lung cancer Qualifiers: Laterality: left Lung location: upper lobe of lung Qualified Code(s): C34.12 - Malignant neoplasm of upper lobe, left bronchus or lung Is this a current diagnosis for this admission?: Yes (2) Intractable back pain Is this a current diagnosis for this admission?: Yes - Plan Summary Plan Summary: i spoke with hospitalist today. He will try to meet with family and discuss the new finding of spinal canal mets. He is to start radiation H[facility]AC[facility]. They will also discuss blood transfusions. I am available as needed. Further cancer treatment on hold until radiation has completed. Continue current pain meds He wa started on oral iron, although hi ferritin is >1000. This is most likely acute phase reactant.
[2019-06-17] MEDS: LAMOTRIGINE 100 MG TABLET PO SCH (21:23)
[2019-06-17] MEDS: ZOLPIDEM TARTRATE 5 MG TABLET PO PRN (21:23)
[2019-06-17] MEDS ORDERED: (PENDING PHARMACY ID) (Prazosin Hcl [Minipress] 5 MG) PO SCH (22:00)
[2019-06-18] MEDS: HYDROMORPHONE HCL INJ/PF 2 MG/ML AMPULE IV PRN ×2 (02:07→15:22)
[2019-06-18] MEDS ORDERED: HYDRALAZINE HCL INJ/PF 20 MG/1 ML SDV IV PRN (02:19)
[2019-06-18] MEDS ORDERED: LORAZEPAM INJ 2 MG/1 ML VIAL IV ONE ×2 (02:19→04:30)
[2019-06-18] MEDS ORDERED: METOPROLOL TARTRATE PF/INJ 5 MG/5 ML SDV IV ONE ×3 (02:28→04:30)
[2019-06-18 03:14] LABS: ARTERIAL BLOOD BASE EXCESS -2.8 mmol/L; ARTERIAL BLOOD FIO2 32%; ARTERIAL BLOOD H2CO3 1.01 mmol/L (1.05-1.35); ARTERIAL BLOOD HCO3 21.3 mmol/L (20-24); ARTERIAL BLOOD O2 SATURATION 98.5 % (94-98); ARTERIAL BLOOD PCO2 33.7 mmHg (35-45); ARTERIAL BLOOD PH 7.42 (7.35-7.45); ARTERIAL BLOOD TOTAL CO2 22.4 mmol/L (23-27)
[2019-06-18 03:18] LABS: CREATINE KINASE MB 1.52 ng/mL (<4.55)
[2019-06-18 03:43] LABS: TROPONIN I 0.132 ng/mL
[2019-06-18] MEDS ORDERED: NITROGLYCERIN 2% OINTMENT 1 GM PACKET TP ONE (04:19)
[2019-06-18] MEDS ORDERED: ASPIRIN 325 MG TABLET PO ONE (04:30)
[2019-06-18] MEDS ORDERED: ASPIRIN 325 MG TABLET PO SCH (04:30)
[2019-06-18] MEDS: HEPARIN SOD (PORCINE) 5,000 UNIT/ML 1 ML VIAL SUBCUT SCH ×2 (05:16→18:29)
--- NOTE | 2019-06-18 08:28 | PDOC PROGRESS REPORT ---
Subjective Progress Note for:: 06/18/19 Subjective:: Patient is restless and wants to stand up. He is wearing BiPAP. States that he is feeling OK. He already ate his breakfast. Nurses report that his BP was very high and he was transferred to [facility] early this morning. He is scheduled to start radiation treatments today. Reason For Visit: INTRACTABLE BACK PAIN, DEHYDRATION Physical Exam Vital Signs: Temp Pulse Resp BP Pulse Ox 98 F 109 H 15 188/101 H 99 06/18/19 07:39 06/18/19 07:39 06/18/19 07:39 06/18/19 07:39 06/18/19 07:39 Intake & Output 06/17/19 06/18/19 06/19/19 06:59 06:59 06:59 Intake Total 568 684 Output Total 1150 1250 Balance -582 -566 Weight 83.9 kg 84.8 kg 81.9 kg General appearance: PRESENT: thin Head exam: PRESENT: normocephalic Throat exam: PRESENT: other - BiPAP in place. Respiratory exam: PRESENT: decreased breath sounds, unlabored Cardiovascular exam: PRESENT: RRR GI/Abdominal exam: PRESENT: firm Neurological exam: PRESENT: awake Psychiatric exam: PRESENT: agitated Skin exam: PRESENT: normal color Results Laboratory Results: 06/17/19 03:58 06/17/19 03:58 06/18/19 02:57 Carbonic Acid 1.01 L HCO3/H2CO3 Ratio 21:1 ABG pH 7.42 ABG pCO2 33.7 L ABG pO2 122.0 H ABG HCO3 21.3 ABG O2 Saturation 98.5 H ABG Base Excess -2.8 FiO2 32% 06/14/19 06/18/19 06/18/19 11:24 02:42 02:42 Creatine Kinase 22 L CK-MB (CK-2) 1.52 Troponin I 0.026 0.132 Impressions: Acute Abdomen Series 06/14/19 11:25 IMPRESSION: 1. NO RADIOGRAPHIC EVIDENCE FOR ACUTE ABDOMINAL DISEASE. 2. THE LEFT UPPER LOBE LUNG MASS HAS INCREASED IN SIZE SINCE THE PRIOR STUDY. Lumbar Spine X-Ray 06/14/19 13:51 IMPRESSION: No fracture or dislocation of the lumbar spine. Moderate multilevel disc degenerative disease and osteophytosis. Severe multilevel facet degenerative change. Lumbar disc and neural foraminal pathology may be further evaluated by MRI if indicated by localizing signs and symptoms. Lumbar Spine MRI 06/15/19 14:15 IMPRESSION: Epidural tumor in the upper thoracic spine Degenerative central canal high-grade stenosis at L3-4. Thoracic Spine MRI 06/15/19 14:16 IMPRESSION: Epidural tumor in the upper thoracic spine Degenerative central canal high-grade stenosis at L3-4. Assessment & Plan - Diagnosis (1) Lung cancer Qualifiers: Laterality: left Lung location: upper lobe of lung Qualified Code(s): C34.12 - Malignant neoplasm of upper lobe, left bronchus or lung Is this a current diagnosis for this admission?: Yes Plan: All treatment currently on hold. (2) Intractable back pain Is this a current diagnosis for this admission?: Yes Plan: Due to metastatic cancer with spinal cord compromise. He is to start radiation treatment today. (3) Hypertensive urgency Is this a current diagnosis for this admission?: Yes Plan: I am concerned that the cord compromise may be affecting his bladder or bowels. This may be causing his agitation and HTN. I have asked for post-void bladder scan. May need to assess for rectal emptying as well. Otherwise, would consult cardiology. I will defer to primary team.
[2019-06-18 09:24] LABS: CREATINE KINASE MB 1.45 ng/mL (<4.55)
[2019-06-18] MEDS: INSULIN REG, HUMAN 100 UNIT/ML 3 ML VIAL (PYX) SUBCUT SCH ×4 (09:26→21:00)
[2019-06-18 09:29] LABS: TROPONIN I 0.114 ng/mL
[2019-06-18] MEDS ORDERED: NORMAL SALINE 250 ML IV PRN ×2 (09:37)
[2019-06-18] MEDS: DEXAMETHASONE 4 MG TABLET PO SCH (09:40)
[2019-06-18] MEDS: LAMOTRIGINE 100 MG TABLET PO SCH (09:41)
[2019-06-18] MEDS: FAMOTIDINE 20 MG TABLET PO SCH (09:41)
[2019-06-18] MEDS: FERROUS SULFATE 325 MG TABLET PO SCH ×2 (09:42→18:30)
[2019-06-18] MEDS ORDERED: EPINEPHRINE INJ 1 MG/10 ML DISP.SYRIN ONE (09:47)
[2019-06-18] MEDS ORDERED: METOPROLOL SUCCINATE 50 MG TAB.SR.24H PO SCH (10:00)
[2019-06-18] MEDS ORDERED: (PENDING PHARMACY ID) (Sertraline Hcl [Zoloft] 200 MG) PO SCH (10:00)
[2019-06-18] MEDS ORDERED: TAMSULOSIN HCL 0.4 MG CAP.SR.24H PO SCH (10:00)
[2019-06-18] MEDS ORDERED: SERTRALINE HCL 50 MG TABLET PO SCH (10:00)
[2019-06-18] MEDS ORDERED: LISINOPRIL 10 MG TABLET PO SCH (10:00)
[2019-06-18] MEDS ORDERED: HYDROCHLOROTHIAZIDE 12.5 MG TABLET PO SCH (10:00)
[2019-06-18] MEDS: MEGESTROL ACETATE SUSP 400 MG/10 ML UDCUP PO SCH (10:09)
[2019-06-18 15:27] LABS: CREATINE KINASE MB 1.12 ng/mL (<4.55); TROPONIN I 0.085 ng/mL
--- NOTE | 2019-06-18 15:31 | PDOC PROGRESS REPORT ---
Subjective Progress Note for:: 06/18/19 Subjective:: No adverse events overnight. No new complaints. Had to be moved to [facility] last night because he was getting agitated and he had substantial elevations in his blood pressure his oxygen demand after he got up out of the bed and walked around a little bit. I believe this probably because his hemoglobin was low it was a huge metabolic demand for him to do that little bit of activity. This morning he is on 2 L per nasal cannula, his blood pressure is down, and he looks very comfortable. Reason For Visit: INTRACTABLE BACK PAIN, DEHYDRATION Physical Exam Vital Signs: Temp Pulse Resp BP Pulse Ox 97.7 F 124 H 18 157/81 H 94 06/18/19 08:03 06/18/19 08:03 06/18/19 08:03 06/18/19 08:03 06/18/19 09:14 Intake & Output 06/17/19 06/18/19 06/19/19 06:59 06:59 06:59 Intake Total 568 684 Output Total 1150 1250 Balance -582 -566 Weight 83.9 kg 84.8 kg 81.9 kg General appearance: PRESENT: no acute distress, cooperative, disheveled Respiratory exam: PRESENT: clear to auscultation gricel, symmetrical, unlabored. ABSENT: accessory muscle use, chest wall tenderness, crackles, prolonged ex piratory phas, rhonchi, tachypnea, wheezes Cardiovascular exam: PRESENT: RRR, +S1, +S2 Pulses: PRESENT: normal carotid pulses Vascular exam: PRESENT: normal capillary refill GI/Abdominal exam: PRESENT: normal bowel sounds, soft. ABSENT: distended, guarding, rebound, tenderness Extremities exam: ABSENT: clubbing, pedal edema Musculoskeletal exam: PRESENT: normal inspection. ABSENT: deformity Neurological exam: PRESENT: alert, awake, oriented to person, oriented to place, oriented to situation Skin exam: PRESENT: dry, warm General appearance: PRESENT: cooperative Results Laboratory Results: 06/17/19 03:58 06/17/19 03:58 06/18/19 02:57 Carbonic Acid 1.01 L HCO3/H2CO3 Ratio 21:1 ABG pH 7.42 ABG pCO2 33.7 L ABG pO2 122.0 H ABG HCO3 21.3 ABG O2 Saturation 98.5 H ABG Base Excess -2.8 FiO2 32% 06/14/19 06/18/19 06/18/19 11:24 02:42 02:42 Creatine Kinase 22 L CK-MB (CK-2) 1.52 Troponin I 0.026 0.132 06/18/19 06/18/19 06/18/19 08:33 08:33 14:29 Creatine Kinase 26 L 33 L CK-MB (CK-2) 1.45 Troponin I 0.114 Impressions: Acute Abdomen Series 06/14/19 11:25 IMPRESSION: 1. NO RADIOGRAPHIC EVIDENCE FOR ACUTE ABDOMINAL DISEASE. 2. THE LEFT UPPER LOBE LUNG MASS HAS INCREASED IN SIZE SINCE THE PRIOR STUDY. Lumbar Spine X-Ray 06/14/19 13:51 IMPRESSION: No fracture or dislocation of the lumbar spine. Moderate multilevel disc degenerative disease and osteophytosis. Severe multilevel facet degenerative change. Lumbar disc and neural foraminal pathology may be further evaluated by MRI if indicated by localizing signs and symptoms. Lumbar Spine MRI 06/15/19 14:15 IMPRESSION: Epidural tumor in the upper thoracic spine Degenerative central canal high-grade stenosis at L3-4. Thoracic Spine MRI 06/15/19 14:16 IMPRESSION: Epidural tumor in the upper thoracic spine Degenerative central canal high-grade stenosis at L3-4. Assessment and Plan - Diagnosis (1) Intractable back pain Is this a current diagnosis for this admission?: Yes Plan: His MRI looks pretty bad with pretty severe degenerative disease and bony hypertrophy due to facet arthropathy, in addition to the pathological lesions noted in the ribs and thoracic spine. Pain currently well controlled. (2) Lung cancer Qualifiers: Laterality: left Lung location: upper lobe of lung Qualified Code(s): C34.12 - Malignant neoplasm of upper lobe, left bronchus or lung Is this a current diagnosis for this admission?: Yes Plan: Oncology is consulted, he will continue outpatient follow-up. He has started radiation treatment. (3) Anemia Qualifiers: Anemia type: unspecified type Qualified Code(s): D64.9 - Anemia, unspecified Is this a current diagnosis for this admission?: Yes Plan: He refused blood yesterday but agreed to do it today. I think the episode that happened last night was because on top of his other medical illnesses, his hemoglobin has been low, and a slight bit of activity that he had last night was enough to challenge his system substantially to put him into respiratory distress, and the sympathetic overdrive triggered a spike in his blood pressure. Now that he is at rest he is on 2 L nasal cannula his systolic is in the 150s instead of the 200s. We can give him 2 units of packed red blood cells today. 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
[2019-06-18 20:25] LABS: ARTERIAL BLOOD BASE EXCESS -13.7 mmol/L; ARTERIAL BLOOD HCO3 11.2 mmol/L (20-24); ARTERIAL BLOOD O2 SATURATION 95.4 % (94-98); ARTERIAL BLOOD PCO2 23.1 mmHg (35-45); ARTERIAL BLOOD PO2 82.1 mmHg (80-100); ARTERIAL BLOOD TOTAL CO2 11.9 mmol/L (23-27)
[2019-06-18 20:26] LABS: ARTERIAL BLOOD FIO2 2L
[2019-06-18 20:29] VITALS: BP 160/94
[2019-06-18] MEDS ORDERED: OXYCODONE HCL IR 5 MG TABLET PO PRN (20:39)
[2019-06-18] MEDS ORDERED: NALOXONE HCL INJ/PF 0.4 MG/1 ML SDV ONE (21:01)
[2019-06-18] MEDS ORDERED: ALBUTEROL SULFATE 0.042% NEB (1.25 MG/3 ML) AMPUL NEB ONE (21:08)
[2019-06-18 21:10] LABS: ANION GAP 19 (5-19); ASPARTATE AMINO TRANSFERASE 279 U/L (17-59); BILIRUBIN,DIRECT 1.1 mg/dL (0.0-0.4); BILIRUBIN,TOTAL 1.9 mg/dL (0.2-1.3); BLOOD UREA NITROGEN 55 mg/dL (7-20); CALCIUM 10.2 mg/dL (8.4-10.2); CARBON DIOXIDE 13 mmol/L (22-30); CHLORIDE 103 mmol/L (98-107); GLUCOSE 347 mg/dL (75-110); NEONATAL BILIRUBIN RESULT 0.8 mg/dL (0.1-1.1); POTASSIUM 5.5 mmol/L (3.6-5.0); TOTAL PROTEIN 5.8 g/dL (6.3-8.2)
[2019-06-18] MEDS ORDERED: DOPAMINE HCL/DEXTROSE 5%-WATER 800 MG/250 ML RTUINJ IV ONE ×2 (21:10→21:12)
[2019-06-18 21:17] LABS: ALKALINE PHOSPHATASE 1416 U/L (38-126)
[2019-06-18] MEDS ORDERED: HYDROCORTISONE SOD SUCCINATE INJ/PF 250 MG/2 ML SDV ONE (21:36)
--- NOTE | 2019-06-18 22:17 | Death Summary ---
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 Hx St 4 lung CA. Mets to Spine and intractable back pain. Found unresponsive and was to go to ICU. However he suffered a cardiac arrest. Was resucitated and got a pulse and BP and transferred emergently intubated to the ICU despite this he lost both pulse and BP within minutes. ACLS followed with 3 rounds epi and defibrilation but rhythm and BP kept dissipating finally to PEA. Family present in room. I made aware of gravity and she decided to forego all efforts. Code called at 10:05PM
[2019-06-19] MEDS ORDERED: IPRATROPIUM/ALBUTEROL 0.5-2.5 MG/3 ML AMPUL NEB ONE (01:30)
--- NOTE | 2019-06-19 05:31 | Progress Note ---
Provider Note Provider Note: Responded to nurses call of patient with altered mental status. At bedside patient is unable to follow commands, without withdrawal from noxious stimuli, Accu-Chek obtained in the 400s, he is found hypotensive with a systolic blood pressure of 60. Code alert is activated. Patient develops PEA, CPR was initiated, he is intubated patient receives IV epinephrine x2 regular insulin, bicarb. Pulses are regained, blood pressure is 130 systolic and is transported to the ICU. Prolonged conversation with family verifies CODE STATUS is full code. Patient is transferred to critical care attending. Total time is 45 minutes
--- NOTE | 2019-06-19 09:04 | EKG REPORT ---
SEVERITY:- ABNORMAL ECG - SINUS TACHYCARDIA LEFT VENTRICULAR HYPERTROPHY BORDERLINE PROLONGED QT INTERVAL : Confirmed by: Ema Bustamante 19-Jun-2019 09:02:46
--- NOTE | 2019-06-19 09:04 | EKG REPORT ---
SEVERITY:- ABNORMAL ECG - SINUS RHYTHM RIGHT BUNDLE BRANCH BLOCK PROBABLE LEFT VENTRICULAR HYPERTROPHY : Confirmed by: Ema Bustamante 19-Jun-2019 09:02:20
[2019-06-19] MEDS ORDERED: ASPIRIN 325 MG TABLET PO SCH (10:00)
== END 2019-06-18 22:05 | DRG 54 ==
LOC: ER 11:03 → EH 15:37 → 4S 21:48 → 3N 06-18 07:16 → ICU 06-18 21:39
PROVIDERS: ADMIT Internal Medicine; ATTEND Internal Medicine
PROC: 5A1935Z Respiratory Ventilation, Less than 24 Consecutive Hours (ICD-10-PCS; principal; 2019-06-18)
PROC: 0BH17EZ Insertion of Endotracheal Airway into Trachea, Via Natural or Artificial Opening (ICD-10-PCS; 2019-06-18)
PROC: 30233N1 Transfusion of Nonautologous Red Blood Cells into Peripheral Vein, Percutaneous Approach (ICD-10-PCS; 2019-06-18)
PROC: 5A09357 Assistance with Respiratory Ventilation, Less than 24 Consecutive Hours, Continuous Positive Airway Pressure (ICD-10-PCS; 2019-06-18)
DX: C79.49 Secondary malignant neoplasm of other parts of nervous system (principal); J96.01 Acute respiratory failure with hypoxia; C79.51 Secondary malignant neoplasm of bone; C34.12 Malignant neoplasm of upper lobe, left bronchus or lung; G89.3 Neoplasm related pain (acute) (chronic); E11.40 Type 2 diabetes mellitus with diabetic neuropathy, unspecified; F32.9 Major depressive disorder, single episode, unspecified; F43.10 Post-traumatic stress disorder, unspecified; D63.0 Anemia in neoplastic disease; E86.0 Dehydration; I16.0 Hypertensive urgency; R62.7 Adult failure to thrive; I46.9 Cardiac arrest, cause unspecified; Z51.5 Encounter for palliative care; F17.210 Nicotine dependence, cigarettes, uncomplicated; I10 Essential (primary) hypertension; Z91.14 Patient's other noncompliance with medication regimen; Z79.899 Other long term (current) drug therapy; Z79.84 Long term (current) use of oral hypoglycemic drugs; Z79.891 Long term (current) use of opiate analgesic; Z83.3 Family history of diabetes mellitus; Z82.49 Family history of ischemic heart disease and other diseases of the circulatory system
CPT/HCPCS: 36415; 36430; 36600; 72110; 72157; 72158; 74022; 80048; 80053; 81001; 82550; 82553; 82607; 82728; 82746; 82803; 82962; 83540; 83550; 83690; 83735; 83880; 84100; 84484; 85025; 85045; 86850; 86900; 86901; 86920; 87040; 92950; 93005; 93010; 94002; 94660; 99285; A9270-GY; A9576; J0171; J0360; J0696; J1170; J1265; J1644; J1815; J2060; J2310; J3490; J7030; P9016; S0119